=== PATIENT | female | born 1990 | race Caucasian/White ===

== ENCOUNTER 2019-02-01 06:15 | Inpatient (IN) | payer BC ==
[2019-02-02] MEDS ORDERED: LIDOCAINE 0.5% (PF) 5 MG/ML (50 ML SDV) SQ PRN (06:22)
[2019-02-02] MEDS ORDERED: TERBUTALINE 1 MG/ML VIAL SQ PRN (06:22)
[2019-02-02] MEDS ORDERED: OXYTOCIN 10 UNIT/ML 1 ML VIAL IM PRN (06:22)
[2019-02-02] MEDS ORDERED: CARBOPROST TROMETHAMINE 250 MCG/ML 1 ML AMP IM PRN (06:22)
[2019-02-02] MEDS ORDERED: METHYLERGONOVINE 0.2 MG/ML 1 ML AMP IM PRN (06:22)
[2019-02-02] MEDS ORDERED: OXYTOCIN 30 UNITS/500 ML NS 30 UNIT in SALINE 1 500ML.BAG IV SCH (06:30)
[2019-02-02] MEDS: LACTATED RINGERS 1,000 ML IV SCH ×3 (06:36→15:10)
[2019-02-02 07:38] LABS: Basophils % (A) 0 %; Eosinophils # (A) 0.1 k/uL (0-0.7); Eosinophils % (A) 1 %; HCT 38.1 % (34.0-46.0); HGB 13.2 gm/dL (11.4-16.0); Lymphocytes # (A) 1.4 k/uL (1.0-4.8); Lymphocytes % (A) 16 %; MCH 31.6 pg (25.0-35.0); MCHC 34.6 g/dL (31.0-37.0); MCV 91.3 fL (80.0-100.0); Mean Platelet Volume 6.7; Monocytes # (A) 0.5 k/uL (0-1.0); Monocytes % (A) 6 %; Neutrophils # (A) 6.7 k/uL (1.3-7.7); Neutrophils % (A) 75 %; Platelet Count 236 k/uL (150-450); RBC 4.17 m/uL (3.80-5.40); RDW 12.3 % (11.5-15.5)
[2019-02-02] MEDS ORDERED: BUTORPHANOL 1 MG/ML 1 ML VIAL IV PRN (08:17)
--- NOTE | 2019-02-02 08:34 | P.HPOB ---
History of Present Illness H&P Date: 02/02/19 Chief Complaint: IUP @ 39 This is a pleasant 28-year-old 1 para 0 at 39 4/7 with an estimated due date of 02/09/19. Patient presents for induction of labor with suspected LGA. Patient had an ultrasound done at 37 weeks revealing a 8 lbs. 2 oz. baby in the 90th percentile. Patient has been receiving routine care with myself which has been essentially uncomplicated. Today she notes good movement she denies contractions, vaginal bleeding or loss of fluid. On blood work she has a blood type of a positive, rubella immune, RPR nonreactive, hep Hyacinth surface antigen negative, HIV negative, she did pass her one-hour Glucola on 11/10/18 with a result of 116, group beta strep was negative on 01/13/19. Review of Systems Constitutional: Denies chills, Denies fatigue, Denies fever Ears, nose, mouth and throat: Denies headache Cardiovascular: Reports leg edema Respiratory: Denies dyspnea Gastrointestinal: Denies nausea, Denies vomiting Genitourinary: Reports Past Medical History Past Medical History: No Reported History History of Any Multi-Drug Resistant Organisms: None Reported Past Surgical History: No Surgical Hx Reported Past Anesthesia/Blood Transfusion Reactions: No Reported Reaction Past Psychological History: No Psychological Hx Reported Smoking Status: Never smoker Past Alcohol Use History: None Reported Past Drug Use History: None Reported - Past Family History Father Family Medical History: No Reported History Medications and Allergies Home Medications Medication Instructions Recorded Confirmed Type Pnv No.95/Ferrous Fum/Folic AC 1 each PO DAILY 02/02/19 02/02/19 History [ Multivitamin Tablet] Allergies Allergy/AdvReac Type Severity Reaction Status Date / Time No Known Allergies Allergy Verified 02/02/19 06:21 Exam Osteopathic Statement: *. No significant issues noted on an osteopathic structural exam other than those noted in the History and Physical/Consult. Vital Signs Temp Pulse Resp BP Pulse Ox 02/02/19 06:21 97.8 F 92 18 130/81 98 Intake and Output 02/01/19 02/02/19 02/02/19 22:59 06:59 14:59 Other: Weight 86.183 kg 86.183 kg Targeted physical exam was performed and the state in general this a well- nourished well-developed female in no acute distress, breathing is noted to be nonlabored heart has regular rate and rhythm abdomen is noted to be gravid and large for gestational age, on cervical exam she is 1/50/-2 amniotomy is performed and clear fluid is obtained. heart tones are noted to be category 1 Results Result Diagrams: 02/02/19 07:23 Assessment and Plan (1) Term Current Visit: Yes Status: Acute Code(s): Z34.90 - ENCNTR FOR SUPRVSN OF NORMAL , UNSP, UNSP TRIMESTER SNOMED Code(s): 16623505 (2) LGA (large for gestational age) fetus Current Visit: Yes Status: Acute Code(s): TZP7744 - SNOMED Code(s): 273127641 Plan: Patient is admitted to labor and delivery for Pitocin induction of labor. Pitocin is started per hospital protocol. We'll monitor closely with suspected large for gestational age fetus. Patient does desire epidural during labor and anesthesia will be notified.
[2019-02-02] MEDS ORDERED: fentaNYL (PF) 50 MCG/ML 5 ML AMP ONE (12:17)
[2019-02-02] MEDS ORDERED: SODIUM CHLORIDE 0.9% 100 ML BAG ONE (12:17)
[2019-02-02] MEDS ORDERED: ROPIVACAINE 5MG/ML 20ML VIAL ONE (12:17)
[2019-02-02] MEDS ORDERED: ROPIVACAINE 100 MG, fentaNYL (PF) 200 MCG in SODIUM CHLORIDE 0.9% 76 ML EPIDURAL ONE (14:32)
[2019-02-02] MEDS ORDERED: CITRIC ACID-SODIUM CITRATE 15 ML CUP PO ONE (17:11)
[2019-02-02] MEDS ORDERED: MORPHINE SULFATE (PF) 0.3 MG/0.3 ML SYR ONE (17:37)
[2019-02-02] MEDS ORDERED: ONDANSETRON 4 MG/2 ML VIAL ONE (17:37)
[2019-02-02] MEDS ORDERED: OXYTOCIN 10 UNIT/ML 1 ML VIAL ONE (17:37)
[2019-02-02] MEDS ORDERED: ONDANSETRON 4 MG/2 ML VIAL IVP PRN (18:22)
[2019-02-02] MEDS ORDERED: diphenhydrAMINE 50 MG/ML 1 ML VIAL IVP PRN ×2 (18:22)
[2019-02-02] MEDS ORDERED: METOCLOPRAMIDE 5 MG/ML 2 ML VIAL IVP PRN (18:22)
[2019-02-02] MEDS ORDERED: diphenhydrAMINE 50 MG CAP PO PRN (18:22)
[2019-02-02] MEDS ORDERED: NALOXONE 0.4 MG/ML 1 ML VIAL IV PRN (18:22)
[2019-02-02] MEDS ORDERED: ZOLPIDEM 5 MG TAB PO PRN (18:22)
[2019-02-02] MEDS ORDERED: diphenhydrAMINE 25 MG CAP PO PRN (18:22)
[2019-02-02] MEDS ORDERED: ACETAMINOPHEN IV (For NPO) 1,000 MG in EMPTY BAG 1 BAG IVPB ONE (18:22)
[2019-02-02] MEDS ORDERED: IBUPROFEN IV 800 MG in SODIUM CHLORIDE 0.9% 250 ML IV ONE (18:23)
--- NOTE | 2019-02-02 18:28 | P.OP ---
Date of Procedure: 02/02/19 Preoperative Diagnosis: IUP at 39 and 4/sevenths weeks, arrest of first stage of labor Postoperative Diagnosis: Same Procedure(s) Performed: Primary low transverse section Anesthesia: epidural Surgeon: Gina Simental [employer]asting #1: Ana Kerr Estimated Blood Loss (ml): 600 IV fluids (ml): 600 Urine output (ml): 300 Pathology: none sent Condition: stable Disposition: PACU Indications for Procedure: This pleasant 28-year-old 1 para 0 at 39-4/7 weeks presented to delivery for induction of labor. Patient was admitted and noted to be 1/50/-3. Over the course of the day patient made very minimal change 3/100/-2 station. Patient was given the options of progressing forward versus primary for arrest of labor patient elected primary given her very minimal change t hroughout the day. Operative Findings: Normal uterus tubes and ovaries were appreciated. Female delivered at 1749, weight of 8 lbs. 2 oz. with Apgars of 8 and 9 at one and 5 minutes respectively. Description of Procedure: Patient was taken back to the operating suite where epidural anesthesia was found be adequate. She was prepped and draped in the normal sterile fashion in the dorsal supine position. A Pfannenstiel skin incision was made with the scalpel and carried through the underlying layer of fascia. Fascia was then incised in the midline and the incision was extended laterally. The superior aspect of the fascial incision was then grasped annika clamps, elevated and underlying rectus muscles dissected off sharply. Attention was then turned to the inferior aspect of the fascial incision which was grasped with Annika clamps, elevated and underlying rectus muscles dissected off sharply. The rectus muscles were in the midline the peritoneum was identified and entered. The incision was then extended superiorly and inferiorly with good visualization the bladder. The bladder blade was then inserted into the abdomen. The vesicouterine peritoneum was identified and the bladder flap was then created. A scalpel was then used to create a hysterotomy incision the was encountered in a vertex presentation occiput transverse and delivered through the umbilical cord was doubly clamped and cut and was handed off to awaiting RN. The placenta was then delivered manually and noted to be intact with a three-vessel cord. The uterus was cleared of all clots and debris and delivered from the abdomen. The uterine incision was closed 0 Vicryl in a running locked fashion 2. Hemostasis was appreciated. At this time the pelvis was then copiously irrigated and the uterus was returned to the abdomen. The gutters were cleared of all clots and debris. The hysterotomy incision was inspected and hemostasis was appreciated. The rectus muscles were loosely reapproximated and the fascial incision was closed with 0 Vicryl in a running fashion. The subcutaneous tissue was irrigated and found to be hemostatic. This was closed with 3-0 Vicryl. The skin was then closed with 4-0 Vicryl in a subcuticular fashion, Steri-Strips and sterile dressings were applied as needed. All counts were correct 2 patient and tolerated delivery well and are resting comfortably.
[2019-02-02] MEDS ORDERED: LACTATED RINGERS 1,000 ML IV SCH (18:30)
[2019-02-02] MEDS ORDERED: OXYTOCIN 20 UNITS/1000 ML NS 1,000 ML IV SCH (18:30)
[2019-02-02] MEDS: SENNOSIDES-DOCUSATE SODIUM 1 EACH TAB PO SCH (20:20)
[2019-02-02] MEDS ORDERED: LACTATED RINGERS 500 ML IV SCH (23:45)
[2019-02-03] MEDS: LACTATED RINGERS 500 ML IV SCH ×4 (00:05→04:18)
[2019-02-03 00:23] LABS: HCT 31.4 % (34.0-46.0); HGB 10.4 gm/dL (11.4-16.0); MCH 30.8 pg (25.0-35.0); MCHC 33.1 g/dL (31.0-37.0); MCV 93.1 fL (80.0-100.0); Mean Platelet Volume 6.8; Platelet Count 241 k/uL (150-450); RBC 3.37 m/uL (3.80-5.40); RDW 12.3 % (11.5-15.5)
[2019-02-03] MEDS ORDERED: KETOROLAC 30 MG/ML 1 ML VIAL IVP PRN (03:08)
[2019-02-03] MEDS: HYDROcodone/APAP 5-325MG 1 EACH TAB PO PRN ×2 (04:33→13:46)
[2019-02-03] MEDS ORDERED: ACETAMINOPHEN IV (For NPO) 1,000 MG in EMPTY BAG 1 BAG IVPB ONE (05:15)
[2019-02-03 07:42] LABS: Basophils % (A) 0 %; Eosinophils % (A) 0 %; HGB 9.6 gm/dL (11.4-16.0); Lymphocytes % (A) 5 %; MCH 31.8 pg (25.0-35.0); MCHC 34.3 g/dL (31.0-37.0); MCV 92.7 fL (80.0-100.0); Mean Platelet Volume 6.1; Monocytes # (A) 0.6 k/uL (0-1.0); Monocytes % (A) 3 %; Neutrophils # (A) 17.7 k/uL (1.3-7.7); Neutrophils % (A) 91 %; Platelet Count 250 k/uL (150-450); RBC 3.02 m/uL (3.80-5.40); RDW 12.5 % (11.5-15.5); WBC 19.4 k/uL (3.8-10.6)
--- NOTE | 2019-02-03 08:15 | P.PNOBGPC ---
Subjective - Subjective Principal diagnosis: POD 1 LTCS Interval history: Patient is seen this morning and feeling well. She states she did have a roughly evening. She states her blood pressure was low she felt unwell did end up getting a fluid bolus and her blood pressure returned to normal. A stat CBC was drawn and hemoglobin was noted to be normal. She did struggle with pain in addition over the night. She was given an additional dose of Ofirmev, caldolor and started oral Chiloquin. This morning she states she is feeling much better. She is wearing an abdominal binder and states that helps. She had her Beauchamp removed at 5 AM and we are awaiting a spontaneous void. She states this morning her pain is controlled. She notes lochia to be minimal. She is breast-feeding with some difficulty. Patient reports: Reports appetite normal, Reports pain well controlled [facility]: doing well, nursing well Objective - Vital Signs Latest vital signs: Vital Signs Temp Pulse Resp BP Pulse Ox 02/03/19 03:00 97.9 F 92 14 92/57 100 02/03/19 00:00 98.8 F 78 16 90/58 98 02/02/19 20:17 96.9 F L 86 16 118/56 99 02/02/19 19:47 99.1 F 79 18 112/67 97 02/02/19 19:23 98 18 115/56 02/02/19 19:08 89 18 104/55 97 02/02/19 18:54 88 18 131/60 97 02/02/19 18:36 88 18 166/72 96 02/02/19 18:17 97.8 F 101 H 18 Intake and Output 02/02/19 02/03/19 02/03/19 22:59 06:59 14:59 Intake Total 1900 1550 Output Total 800 800 Balance 1100 750 Intake: Intake, IV Titration 1900 1550 Amount ACETAMINOPHEN IV (For NPO 400 ) 1,000 mg In Empty Bag 1 bag @ 400 mls/hr IVPB ONCE ONE Rx#:[id number] Ibuprofen IV 800 mg In 500 Sodium Chloride 0.9% 250 ml @ 500 mls/hr IV ONCE ONE Rx#:[id number] Lactated Ringers 500 ml @ 500 999 mls/hr IV .Q31M TON Rx#:[id number] Oxytocin 20 Units/1000 ml 1000 1000 Ns 1,000 ml @ Per Protocol IV .Q0M TON Rx#: [id number] ceFAZolin 2 gm In Sodium 50 Chloride 0.9% 50 ml @ 100 mls/hr IVPB ONCE ONE Rx# :[id number] Output: Urine 800 800 Uretheral (Beauchamp) 600 Other: Voiding Method Indwelling Catheter Indwelling Catheter - Exam Abdomen: Present: normal appearance Incision: Present: normal, dry, intact Uterus: Present: normal, firm - Labs Labs: Abnormal Lab Results - Last 24 Hours (Table) 02/03/19 02/03/19 Range/Units 00:06 06:57 WBC 21.0 H 19.4 H (3.8-10.6) k/uL RBC 3.37 L 3.02 L (3.80-5.40) m/uL Hgb 10.4 L 9.6 L (11.4-16.0) gm/dL Hct 31.4 L 28.0 L (34.0-46.0) % Neutrophils # 17.7 H (1.3-7.7) k/uL Assessment and Plan (1) Term Current Visit: Yes Status: Acute Code(s): Z34.90 - ENCNTR FOR SUPRVSN OF NORMAL , UNSP, UNSP TRIMESTER SNOMED Code(s): 93799235 (2) LGA (large for gestational age) fetus Current Visit: Yes Status: Acute Code(s): DDE8855 - SNOMED Code(s): 437629363 (3) S/P section Current Visit: Yes Status: Acute Code(s): Z98.891 - HISTORY OF UTERINE SCAR FROM PREVIOUS SURGERY SNOMED Code(s): 824464382 Plan: We will encourage ambulation this morning, advance diet to regular. Will plan to encourage by mouth pain medications scheduled.
[2019-02-03] MEDS: IBUPROFEN 600 MG TAB PO PRN ×3 (09:58→22:41)
[2019-02-03] MEDS: SENNOSIDES-DOCUSATE SODIUM 1 EACH TAB PO SCH ×2 (11:32→19:40)
[2019-02-03 12:29] VITALS: RESP 16
[2019-02-03] MEDS: ACETAMINOPHEN TAB 325 MG TAB PO PRN (19:40)
[2019-02-03] MEDS: PRENATAL VIT-IRON-FOLIC ACID 1 EACH CAP PO SCH (20:28)
[2019-02-03] MEDS: SIMETHICONE 80 MG CHEWABLE PO PRN (23:08)
[2019-02-04] MEDS: ACETAMINOPHEN TAB 325 MG TAB PO PRN (01:54)
[2019-02-04] MEDS: IBUPROFEN 600 MG TAB PO PRN ×2 (05:21→11:34)
[2019-02-04] MEDS: SIMETHICONE 80 MG CHEWABLE PO PRN ×2 (05:22→08:27)
--- NOTE | 2019-02-04 08:15 | P.PNOBGPC ---
Subjective - Subjective Principal diagnosis: POD 2 LTCS Interval history: Patient continues to struggle with pain control. She is refusing Scio as she states they don't help, so has been using Motrin and Tylenol [id number]. She states she did rest well over the night after being given Benadryl. Patient states she is struggling with breast-feeding and requesting a medical sales consultant consult. Her lochia is minimal. She is tolerating a regular diet without nausea or vomiting. She is ambulating and voiding without difficulty. Infant is doing well and is at the bedside. Patient reports: Reports appetite normal, Reports voiding normally, Reports appetite poor, Reports pain poorly controlled, Reports ambulating normally [place]: doing well Objective - Vital Signs Latest vital signs: Vital Signs Temp Pulse Resp BP 02/04/19 00:00 98.0 F 103 H 16 114/74 02/03/19 16:00 97.9 F 84 16 112/62 02/03/19 12:00 98.5 F 105 H 16 110/58 Intake and Output 02/03/19 02/04/19 02/04/19 22:59 06:59 14:59 Other: # Voids 2 - Exam Extremities: Present: normal, edema Abdomen: Present: normal appearance, soft Incision: Present: normal, dry Uterus: Present: normal, firm Assessment and Plan (1) Term Current Visit: Yes Status: Acute Code(s): Z34.90 - ENCNTR FOR SUPRVSN OF NORMAL , UNSP, UNSP TRIMESTER SNOMED Code(s): 14494380 (2) LGA (large for gestational age) fetus Current Visit: Yes Status: Acute Code(s): IBR4220 - SNOMED Code(s): 381247338 (3) S/P section Current Visit: Yes Status: Acute Code(s): Z98.891 - HISTORY OF UTERINE SCAR FROM PREVIOUS SURGERY SNOMED Code(s): 787212268 Plan: Ultram is ordered for pain control this morning, consult is initiated, discussed with patient that most likely she is feeling gas pain and encouraged ambulation, arabella gibson Will re-evaluate later this afternoon for possibility of discharge. Patient is anxious about discharge today so we'll most likely stay until tomorrow.
[2019-02-04] MEDS: traMADol 50 MG TAB PO SCH ×2 (08:27→14:34)
[2019-02-04] MEDS: PRENATAL VIT-IRON-FOLIC ACID 1 EACH CAP PO SCH (08:27)
[2019-02-04] MEDS: SENNOSIDES-DOCUSATE SODIUM 1 EACH TAB PO SCH (08:27)
[2019-02-04 09:08] VITALS: BP 106/65; PULSE 91; TEMP 98.4
--- NOTE | 2019-02-04 14:32 | P.DS ---
Providers Date of admission: 02/02/19 06:07 Expected date of discharge: 02/04/19 Attending physician: Gina Simental Primary care physician: Stated None - Discharge Diagnosis(es) (1) Term Current Visit: Yes Status: Acute (2) LGA (large for gestational age) fetus Current Visit: Yes Status: Acute (3) S/P section Current Visit: Yes Status: Acute Hospital Course: This pleasant 28-year-old 1 para 0 at 39-4/7 weeks presented to labor and delivery for induction of labor for suspected LGA, patient request. Patient was admitted to labor and delivery despite regular contractions made very minim al cervical change from 1 cm to 3 cm over the course of the entire day. Patient was given the option of continuing on versus primary give her arrest of labor she elected primary . Patient was taken back to the operating suite was performed without difficulty for further details on the C- section please see the operative report. Female infant was delivered at 1749, weight of 8 lbs. 2 oz. with Apgars of 8 and 9 at one and 5 minutes respectively. Patient's postoperative course was compensated by poor pain control. On this postop day #2 she is feeling well though and states her pain is well-controlled and she does wish discharge home. She is breast-feeding without difficulty after a consult, she states her lochia is minimal, she is ambulating and voiding without difficulty. She is tolerating a regular diet without nausea or vomiting. Patient Condition at Discharge: Good Plan - Discharge Summary New Discharge Prescriptions: No Action Pnv No.95/Ferrous Fum/Folic AC [ Multivitamin Tablet] 1 each PO DAILY Discharge Medication List Pnv No.95/Ferrous Fum/Folic AC [ Multivitamin Tablet] 1 each PO DAILY 02/02/19 [History] Follow up Appointment(s)/Referral(s): Gina Simental DO [Doctor of Osteopathic Medicine] - 2 Weeks Patient Instructions/Handouts: (DC), (GEN) Activity/Diet/Wound Care/Special Instructions: No tub baths or intercourse until 6 weeks . Patient is to see me in the office at 2 weeks . Discharge Disposition: HOME SELF-CARE
== END 2019-02-04 15:30 | disposition home or self-care (01) | DRG 788 ==
LOC: 4FBP 02-02 06:07
PROVIDERS: ADMIT Obstetrics & Gynecology Obstetrics; ATTEND Obstetrics & Gynecology Obstetrics
PROC: 10D00Z1 Extraction of Products of Conception, Low, Open Approach (ICD-10-PCS; principal; 2019-02-02 17:30)
DX: O36.63X0 Maternal care for excessive fetal growth, third trimester, not applicable or unspecified (principal); O62.1 Secondary uterine inertia; Z3A.39 39 weeks gestation of pregnancy; Z37.0 Single live birth; G89.18 Other acute postprocedural pain
CPT/HCPCS: 85025; 85027; 86850; 86900; 86901

== ENCOUNTER 2019-02-17 10:40 | Inpatient (IN) | payer BC ==
[2019-02-17 11:26] LABS: Basophils # (A) 0.1 k/uL (0-0.2); Basophils % (A) 0 %; Eosinophils # (A) 0.2 k/uL (0-0.7); Eosinophils % (A) 2 %; HCT 28.3 % (34.0-46.0); HGB 9.3 gm/dL (11.4-16.0); Hypochromasia Moderate; Lymphocytes % (A) 7 %; MCH 30.7 pg (25.0-35.0); MCV 92.9 fL (80.0-100.0); Mean Platelet Volume 7.5; Monocytes # (A) 0.6 k/uL (0-1.0); Monocytes % (A) 4 %; Neutrophils # (A) 13.5 k/uL (1.3-7.7); Neutrophils % (A) 87 %; Platelet Count 494 k/uL (150-450); Poikilocytosis Slight; RBC 3.05 m/uL (3.80-5.40); RDW 12.8 % (11.5-15.5); WBC 15.6 k/uL (3.8-10.6)
[2019-02-17 11:40] LABS: ALT 16 U/L (4-34); AST 32 U/L (14-36); African American GFR (CKD) >90 (>60 ml/min/1.73 sqM); Alkaline Phosphatase 117 U/L (38-126); Anion Gap 11 mmol/L; Blood Urea Nitrogen 11 mg/dL (7-17); Carbon Dioxide 23 mmol/L (22-30); Chloride 104 mmol/L (98-107); Glucose 92 mg/dL (74-99); Non-African American GFR(CKD) >90 (>60 ml/min/1.73 sqM); Potassium 3.4 mmol/L (3.5-5.1); Sodium 138 mmol/L (137-145); Total Bilirubin 0.8 mg/dL (0.2-1.3); Total Protein 5.8 g/dL (6.3-8.2)
[2019-02-17] MEDS: PIPERACILLIN-TAZOBACTAM 3.375 GM in SODIUM CHLORIDE 0.9% 100 ML IVPB SCH ×2 (11:56→19:51)
[2019-02-17] MEDS: LACTATED RINGERS 1,000 ML IV SCH ×2 (12:06→22:08)
[2019-02-17] MEDS ORDERED: Acetaminophen-Codeine 300-30mg TAB PO PRN (12:11)
[2019-02-17] MEDS ORDERED: SENNOSIDES-DOCUSATE SODIUM 1 EACH TAB PO STA (12:13)
[2019-02-17] MEDS ORDERED: BISACODYL 10 MG SUPP RECTAL STA (12:14)
[2019-02-17] MEDS: IBUPROFEN 600 MG TAB PO SCH ×3 (12:20→22:07)
--- NOTE | 2019-02-17 12:26 | P.HPOB ---
History of Present Illness H&P Date: 02/17/19 Chief Complaint: postop wound infection, seroma this pleasant 28-year-old 1 para 1 underwent primary low transverse section proximally 2 weeks ago. Patient noted increasing swelling and discoloration around the wound itself and presented to the office on Thursday. She denied fevers at that time. She noted an increase in discomfort and was taking Motrin and Tylenol [id number] for pain. Patient denied fevers at that time. She notes normal urination and some constipation. Patient subsequently presented to the office with increasing complaints of discharge, bloody in nature from the incision. Patient was seen in the office afebrile, normal vitals, minimal discharge from the incision. Patient states after the drainage And she did feel relief of pressure and discomfort. Patient denies nausea vomiting or diarrhea. She denies fever at home. She does note constipation since taking Tylenol 3. She was breast-feeding previously but discontinued. Review of Systems Constitutional: Reports fatigue, Denies chills, Denies fever Ears, nose, mouth and throat: Denies headache Cardiovascular: Reports leg edema Respiratory: Denies dyspnea Gastrointestinal: Reports constipation, Denies diarrhea, Denies nausea, Denies vomiting Past Medical History Past Medical History: No Reported History History of Any Multi-Drug Resistant Organisms: None Reported Past Surgical History: No Surgical Hx Reported, Section Past Anesthesia/Blood Transfusion Reactions: No Reported Reaction Past Psychological History: No Psychological Hx Reported Smoking Status: Never smoker Past Alcohol Use History: None Reported Past Drug Use History: None Reported - Past Family History Father Family Medical History: No Reported History Medications and Allergies Home Medications Medication Instructions Recorded Confirmed Type Pnv No.95/Ferrous Fum/Folic AC 1 each PO DAILY 02/02/19 02/17/19 History [ Multivitamin Tablet] Acetaminophen-Codeine 300-30mg 1 - 2 tab PO Q4-6H PRN 02/17/19 02/17/19 History [Tylenol w/codeine #3] Amoxicillin/Potassium Clav 600 BID 02/17/19 History [Augmentin 200-28.5 Chew Tab] Allergies Allergy/AdvReac Type Severity Reaction Status Date / Time No Known Allergies Allergy Verified 02/17/19 10:48 Exam Osteopathic Statement: *. No significant issues noted on an osteopathic structural exam other than those noted in the History and Physical/Consult. Vital Signs Temp Pulse Resp BP 02/17/19 11:26 98.3 F 77 16 106/64 02/17/19 10:58 93 20 116/60 02/17/19 10:43 98.4 F 98 16 106/64 Intake and Output 02/16/19 02/17/19 02/17/19 22:59 06:59 14:59 Other: Weight 76.657 kg targeted physical exam is performed in this date in general this a well- nourished well-developed female, breathing is noted to be nonlabored and she appears well. Heart has a regular rate and rhythm. Abdomen is examined and overall soft with bowel sounds incision is noted to be firm with some discharge serosanguineous in nature. Some tenderness is noted on examination. Results Result Diagrams: 02/17/19 11:16 02/17/19 11:16 Abnormal Lab Results - Last 24 Hours (Table) 02/17/19 02/17/19 Range/Units 11:16 11:16 WBC 15.6 H (3.8-10.6) k/uL RBC 3.05 L (3.80-5.40) m/uL Hgb 9.3 L (11.4-16.0) gm/dL Hct 28.3 L (34.0-46.0) % Plt Count 494 H (150-450) k/uL Neutrophils # 13.5 H (1.3-7.7) k/uL Potassium 3.4 L (3.5-5.1) mmol/L Total Protein 5.8 L (6.3-8.2) g/dL Albumin 3.0 L (3.5-5.0) g/dL Assessment and Plan (1) Wound abscess Current Visit: Yes Status: Acute Code(s): POB0287 - SNOMED Code(s): 288989541 (2) S/P section Current Visit: No Status: Acute Code(s): Z98.891 - HISTORY OF UTERINE SCAR FROM PREVIOUS SURGERY SNOMED Code(s): 463334761 Plan: given increased size of seroma with discharge plan admission for IV antibiotics 24 hours. CBC, CMP, CAT scan are ordered to assess seroma size. We will continue oral pain medications as needed. IV zosyn is ordered given the large nature of the seroma. plan is discussed with the patient in detail, and all questions are answered.
--- NOTE | 2019-02-17 12:57 | CT ---
EXAMINATION TYPE: CT abdomen pelvis wo con DATE OF EXAM: 02/17/2019 COMPARISON: None HISTORY: Post incision infection CT DLP: 958 mGycm Automated exposure control for dose reduction was used. TECHNIQUE: Helical acquisition of images was performed from the lung bases through the pelvis. FINDINGS: There is an elongated fluid collection within the rectus abdominis, infraumbilical within the pelvis at the section incision site. This measures up to 11.0 cm in transverse dimension, 2.3 cm in anterior posterior dimension and 7.3 cm in craniocaudal dimension. There is overlying skin thickenin g and subcutaneous fat stranding. There is also fat stranding in the peritoneum anterior to the uteru s and some free fluid in the right adnexa. Difficult to exclude right adnexal abscess without contras t. In the posterior cul-de-sac there is high density fluid seen. No discrete pneumoperitoneum seen. The unenhanced liver, spleen, pancreas, adrenal glands, and kidneys are unremarkable. Gallbladder dem onstrates no evidence of cholelithiasis and kidneys demonstrate no evidence of nephrolithiasis. [place] us structures appear intact. IMPRESSION: 1. INFERIOR RECTUS SHEATH FLUID COLLECTION MEASURING 11.0 X 2.3 X 7.3 CM. NO CONTRAST IS SEEN TO ASSE SS FOR RIM ENHANCEMENT. THIS COULD REPRESENT HEMATOMA OR ABSCESS. FAT STRANDING AND SKIN THICKENING O VERLYING THIS IS PRESUMED TO REPRESENT CELLULITIS. 2. SMALL VOLUME HIGH DENSITY FREE FLUID IN THE POSTERIOR CUL-DE-SAC MAY BE RELATED TO POSTOPERATIVE C HANGE AND POSTOPERATIVE BLOOD PRODUCTS. ADDITIONALLY THERE IS RIGHT ADNEXAL FLUID THAT LIKELY IS FREE FLUID HOWEVER AGAIN LACK OF INTRAVENOUS CONTRAST MAKES DELINEATION OF ANY INTRA-ABDOMINAL ABSCESS DI FFICULT. CRESCENTIC FLUID ANTERIOR TO THE UTERUS IS ALSO SEEN WITH ILL-DEFINED BORDERS, ALSO LIKELY F REE FLUID.
[2019-02-17] MEDS: Acetaminophen-Codeine 300-30mg TAB PO PRN (18:31)
--- NOTE | 2019-02-17 21:08 | P.PN ---
Subjective Progress Note Date: 02/17/19 Principal diagnosis: rectus hematoma this pleasant 28-year-old 1 para 1 status post primary for arrest of first stage of labor and suspected LGA presented to the office this morning with complaints of bleeding from her incision. Patient was noted to have a firmness around the incision with some dark blood being expressed. Patient denied fever or chills at home but given the extensive nature of the firmness around the incision and tenderness patient was admitted to the hospital for IV antibiotics and further workup. Computed tomography scan was done this afternoon revealing an 11 cm rectus hematoma patient has noted continued drainage throughout the day and states she has taken Tylenol No. 3 1. Patient is in good spirits and although frustrated with admission understands. Objective - Vital Signs Vital signs: Vital Signs Temp 97.9 F 02/17/19 16:00 Pulse 104 H 02/17/19 16:00 Resp 16 02/17/19 16:00 BP 126/71 02/17/19 16:00 Pulse Ox Intake & Output 02/17/19 02/17/19 02/18/19 06:59 18:59 06:59 Weight 76.657 kg Other: # Voids 1 - Constitutional General appearance: Present: average body habitus, cooperative, no acute distress - Respiratory Respiratory: bilateral: CTA - Gastrointestinal Gastrointestinal Comment(s): incision is noted to be intact there is 1 small area that is noted to be oozing old dark blood, on inspection of the peripads that is overlying the incision old dark blood is noted in addition. Ecchymosis is noted around the entire incision. - Labs CBC & Chem 7: 02/17/19 11:16 02/17/19 11:16 Labs: Abnormal Lab Results - Last 24 Hours (Table) 02/17/19 02/17/19 Range/Units 11:16 11:16 WBC 15.6 H (3.8-10.6) k/uL RBC 3.05 L (3.80-5.40) m/uL Hgb 9.3 L (11.4-16.0) gm/dL Hct 28.3 L (34.0-46.0) % Plt Count 494 H (150-450) k/uL Neutrophils # 13.5 H (1.3-7.7) k/uL Potassium 3.4 L (3.5-5.1) mmol/L Total Protein 5.8 L (6.3-8.2) g/dL Albumin 3.0 L (3.5-5.0) g/dL Assessment and Plan (1) Wound abscess Current Visit: Yes Status: Acute Code(s): NQS9193 - SNOMED Code(s): 022307843 (2) S/P section Current Visit: No Status: Acute Code(s): Z98.891 - HISTORY OF UTERINE SCAR FROM PREVIOUS SURGERY SNOMED Code(s): 309351714 (3) Rectus sheath hematoma Current Visit: Yes Status: Acute Code(s): S30.1XXA - CONTUSION OF ABDOMINAL WALL, INITIAL ENCOUNTER SNOMED Code(s): 956700907 Plan: we'll continue IV antibiotics for an additional 2 doses and anticipate discharge home tomorrow. Findings of the CAT scan were reviewed with the patient in detail and she states understanding. She is anxious to feel better and get home. We will monitor patient's vital signs overnight recheck hemoglobin in the morning and I suspect it will be slightly lower than admission given the IV fluids she has received during this admission. Patient's hemoglobin was stable from discharge of her . Hemoglobin on discharge was noted to be 9.6 and on admission today 9.3. We will reevaluate this patient clinically in the morning
[2019-02-17] MEDS: PRENATAL VIT-IRON-FOLIC ACID 1 EACH CAP PO SCH (22:10)
[2019-02-18] MEDS: Acetaminophen-Codeine 300-30mg TAB PO PRN ×2 (00:28→08:22)
[2019-02-18 03:38] VITALS: TEMP 98.2
[2019-02-18] MEDS: IBUPROFEN 600 MG TAB PO SCH (04:08)
[2019-02-18] MEDS: LACTATED RINGERS 1,000 ML IV SCH ×2 (04:09→11:43)
[2019-02-18] MEDS: PIPERACILLIN-TAZOBACTAM 3.375 GM in SODIUM CHLORIDE 0.9% 100 ML IVPB SCH ×2 (04:13→11:42)
[2019-02-18 06:22] LABS: HCT 24.8 % (34.0-46.0); HGB 8.7 gm/dL (11.4-16.0); Hypochromasia Moderate; MCH 32.4 pg (25.0-35.0); MCHC 35.3 g/dL (31.0-37.0); MCV 91.8 fL (80.0-100.0); Mean Platelet Volume 7.5; Platelet Count 474 k/uL (150-450); Poikilocytosis Slight; RDW 12.9 % (11.5-15.5); WBC 11.6 k/uL (3.8-10.6)
[2019-02-18] MEDS: PRENATAL VIT-IRON-FOLIC ACID 1 EACH CAP PO SCH (08:21)
--- NOTE | 2019-02-18 10:05 | P.PN ---
Subjective Progress Note Date: 02/18/19 Principal diagnosis: rectus hematoma patient did well overnight. She continues to be afebrile, she notes continued 0 single this discharge from her incision she states her pain is controlled with oral Tylenol No. 3 alternating with Motrin. Labs are reviewed with the patient this morning her white count did decrease from 15.6-11.6 by slight decrease in her hemoglobin from 9.3-8.7 this was expected secondary to IV fluid hydration. She states she is ambulating and voiding without difficulty at this time. She is still struggling with constipation symptoms. She denies nausea or vomiting and is tolerating a regular diet without difficulty. Objective - Vital Signs Vital signs: Vital Signs Temp 98.2 F 02/18/19 04:20 Pulse 76 02/18/19 04:20 Resp 18 02/18/19 04:20 BP 98/55 02/18/19 04:20 Pulse Ox 100 02/18/19 04:20 Intake & Output 02/17/19 02/18/19 02/18/19 18:59 06:59 18:59 Weight 76.657 kg Other: # Voids 1 2 - Constitutional General appearance: Present: average body habitus, cooperative, no acute distress - Respiratory Respiratory: bilateral: CTA - Cardiovascular Rhythm: regular - Gastrointestinal Gastrointestinal Comment(s): collection surrounding the incision is softening and improving. Serosanguineous fluid is able to be expressed from the incision through the drainage point of the incision. Some tenderness is noted but significant improvement from yesterday. - Labs CBC & Chem 7: 02/18/19 06:00 02/17/19 11:16 Labs: Abnormal Lab Results - Last 24 Hours (Table) 02/17/19 02/17/19 02/18/19 Range/Units 11:16 11:16 06:00 WBC 15.6 H 11.6 H (3.8-10.6) k/uL RBC 3.05 L 2.70 L (3.80-5.40) m/uL Hgb 9.3 L 8.7 L (11.4-16.0) gm/dL Hct 28.3 L 24.8 L (34.0-46.0) % Plt Count 494 H 474 H (150-450) k/uL Neutrophils # 13.5 H (1.3-7.7) k/uL Potassium 3.4 L (3.5-5.1) mmol/L Total Protein 5.8 L (6.3-8.2) g/dL Albumin 3.0 L (3.5-5.0) g/dL Assessment and Plan (1) Wound abscess Current Visit: Yes Status: Acute Code(s): SKC6377 - SNOMED Code(s): 553192458 (2) S/P section Current Visit: No Status: Acute Code(s): Z98.891 - HISTORY OF UTERINE SCAR FROM PREVIOUS SURGERY SNOMED Code(s): 851188358 (3) Rectus sheath hematoma Current Visit: Yes Status: Acute Code(s): S30.1XXA - CONTUSION OF ABDOMINAL WALL, INITIAL ENCOUNTER SNOMED Code(s): 117365997 Plan: labs and exam discussed with patient in detail all questions were answered. Patient will receive her noon dose of IV Zosyn and plan discharge home following this. Discharge planning is discussed with this patient I would like to see her the week of New 's she will continue on her oral Augmentin twice daily.
[2019-02-18 10:40] VITALS: BP 103/60; PULSE 82; RESP 20
--- NOTE | 2019-02-18 12:39 | P.DS ---
Providers Date of admission: 02/17/19 10:40 Expected date of discharge: 02/18/19 Attending physician: Gina Simental Primary care physician: Stated None - Discharge Diagnosis(es) (1) Wound abscess Current Visit: Yes Status: Acute (2) S/P section Current Visit: No Status: Acute (3) Rectus sheath hematoma Current Visit: Yes Status: Acute Hospital Course: This pleasant 28-year-old 1 para 1 presented to the office on 12/18 with complaints of increasing bloody discharge from her incision. Patient states she noted pressure and then a release when the fluid was draining out. Patient denied fevers or chills at that time. She notes no nausea and vomiting she is tolerating a regular diet, she states she is urinating without difficulty she does complain of constipation symptoms since delivery. Patient was admitted approximately 2 weeks ago for an induction of labor secondary to suspected LGA. Patient made minimal progress and the didn't descend into the pelvis therefore primary was performed for that reason. Patient's was completed without difficulty and her course was complicated by poor pain control. Patient did note good pain control on postop day #2 and was eventually discharged home. Patient states that she did well up until the day of the office visit. She states the incision became firm and then she noted the release of fluid as stated above. Patient Condition at Discharge: Good Plan - Discharge Summary New Discharge Prescriptions: No Action Pnv No.95/Ferrous Fum/Folic AC [ Multivitamin Tablet] 1 each PO DAILY Acetaminophen-Codeine 300-30mg [Tylenol w/codeine #3] 1 - 2 tab PO Q4-6H PRN PRN Reason: Mild Pain Amoxicillin/Potassium Clav [Augmentin 200-28.5 Chew Tab] 600 BID Discharge Medication List Pnv No.95/Ferrous Fum/Folic AC [ Multivitamin Tablet] 1 each PO DAILY 02/02/19 [History] Acetaminophen-Codeine 300-30mg [Tylenol w/codeine #3] 1 - 2 tab PO Q4-6H PRN 02/17/19 [History] Amoxicillin/Potassium Clav [Augmentin 200-28.5 Chew Tab] 600 BID 02/17/19 [History] Follow up Appointment(s)/Referral(s): Gina Simental DO [Doctor of Osteopathic Medicine] - 1 Week (03/01) Patient Instructions/Handouts: Seroma (DC), Seroma (GEN), Wound Infection (ED), Wound Infection (DC) Activity/Diet/Wound Care/Special Instructions: Warm compresses to encourage drainage from the incision itself it is continuing to drain serosanguineous fluid. She is to continue her Augmentin twice daily until complete. She is given prescriptions for Tylenol No. 3, [id number] Motrin for pain control. Discharge Disposition: HOME SELF-CARE
== END 2019-02-18 14:00 | disposition home or self-care (01) | DRG 776 ==
LOC: 4FBP 10:40
PROVIDERS: ADMIT Obstetrics & Gynecology Obstetrics; ATTEND Obstetrics & Gynecology Obstetrics
DX: O86.09 Infection of obstetric surgical wound, other surgical site (principal); O90.2 Hematoma of obstetric wound; K59.00 Constipation, unspecified; Z79.899 Other long term (current) drug therapy
CPT/HCPCS: 74176; 80053; 85025; 85027

== ENCOUNTER 2019-02-21 05:53 | Inpatient (IN) | payer BC ==
[2019-02-21] MEDS ORDERED: KETOROLAC 30 MG/ML 1 ML VIAL IVP STA (06:28)
[2019-02-21] MEDS ORDERED: SODIUM CHLORIDE 0.9% 1,000 ML IV STA ×2 (06:28)
[2019-02-21] MEDS ORDERED: PIPERACILLIN-TAZOBACTAM 3.375 GM in SODIUM CHLORIDE 0.9% 100 ML IVPB STA (06:29)
[2019-02-21] MEDS ORDERED: ACETAMINOPHEN TAB 500 MG TAB PO STA (06:29)
[2019-02-21] MEDS ORDERED: MORPHINE SULFATE 2 MG/ML SYRINGE IVP ONE (06:34)
--- NOTE | 2019-02-21 06:35 | ED ---
Abdominal Pain HPI - General Chief Complaint: Abdominal Pain Stated Complaint: [id number] issues Time Seen by Provider: 02/21/19 06:13 Source: patient, family, RN notes reviewed, old records reviewed Mode of arrival: wheelchair Limitations: no limitations - History of Present Illness Initial Comments: Patient is a 28 year old female, approximately 19 days post . Patient reports that she has been having issues postoperatively with concern for infection in her site. She was admitted on February 17 by her MANAGER [facility] doctor And was discharged with oral Augmentin on the . She reports that she has been having fevers, and has been alternating Motrin and Tylenol. She also reports that she has been treated with Tylenol with codeine for postop pain, this is causing her to be constipated. She's not had a bowel movement in greater than 5 days. Patient states that she has noticed some purulent drainage from the left portion of her incision site. Patient denies any vaginal bleeding or discharge. - Related Data Home Medications Medication Instructions Recorded Confirmed Acetaminophen-Codeine 300-30mg 1 - 2 tab PO Q4-6H PRN 02/17/19 02/21/19 [Tylenol w/codeine #3] Amoxic-Pot Clav 875-125Mg 1 tab PO Q12H 02/21/19 02/21/19 [Augmentin 875-125] Fenugreek 3 tab PO TID 02/21/19 02/21/19 Ibuprofen [Motrin Ib] 600 mg PO Q6H 02/21/19 02/21/19 Pnv,Calcium 72/Iron/Folic Acid 1 tab PO DAILY 02/21/19 02/21/19 [ Plus Tablet] Allergies Allergy/AdvReac Type Severity Reaction Status Date / Time No Known Allergies Allergy Verified 02/21/19 08:03 Review of Systems ROS Statement: Those systems with pertinent positive or pertinent negative responses have been documented in the HPI. ROS Other: All systems not noted in ROS Statement are negative. Past Medical History Past Medical History: No Reported History History of Any Multi-Drug Resistant Organisms: None Reported Past Surgical History: No Surgical Hx Reported, Section Past Anesthesia/Blood Transfusion Reactions: No Reported Reaction Past Psychological History: No Psychological Hx Reported Smoking Status: Never smoker Past Alcohol Use History: None Reported Past Drug Use History: None Reported - Past Family History Father Family Medical History: No Reported History General Exam - General Exam Comments Initial Comments: 28-year-old female. Alert and oriented. Moderate discomfort. Limitations: no limitations General appearance: alert Head exam: Present: atraumatic, normocephalic, normal inspection Eye exam: Present: normal appearance, PERRL, EOMI. Absent: scleral icterus, conjunctival injection, periorbital swelling ENT exam: Present: normal exam, mucous membranes moist Neck exam: Present: normal inspection. Absent: tenderness, meningismus, lymphadenopathy Respiratory exam: Present: normal lung sounds bilaterally. Absent: respiratory distress, wheezes, rales, rhonchi, stridor Cardiovascular Exam: Present: regular rate, normal rhythm, normal heart sounds. Absent: systolic murmur, diastolic murmur, rubs, gallop, clicks GI/Abdominal exam: Present: soft, distended, normal bowel sounds, other (Patient has firm lower abdomen, some purulent drainage noted at the left lateral portion of the incision site. No wound dehiscence. No significant erythema to the skin at this time.). Absent: tenderness, guarding, rebound, rigid Extremities exam: Present: normal inspection, full ROM, normal capillary refill. Absent: tenderness, pedal edema, joint swelling, calf tenderness Back exam: Present: normal inspection Neurological exam: Present: alert, oriented X3, CN II-XII intact Psychiatric exam: Present: normal affect, normal mood Skin exam: Present: warm, dry, intact, normal color. Absent: rash Course Vital Signs 02/21/19 02/21/19 06:02 06:28 Temperature 99.7 F H 101.7 F H Pulse Rate 116 H Respiratory 19 Rate Blood Pressure 115/72 O2 Sat by Pulse 98 Oximetry Medical Decision Making - Medical Decision Making Patient is a 28-year-old female, approximately 20 days post . Patient presents today with complaint fever, increasing abdominal pain. She also states she's not had a bowel movement 5 days. Patient's had a fever 102 upon arrival. She started on IV Zosyn and blood cultures obtained. Lactic acid is normal. Mild leukocytosis is noted at 12,000. Patient CT and pelvis with contrast. There is persistent fluid collection with a lower anterior rectus sheath may reflect Stoermer hematoma infection collections difficult to exclude. Also increasing fluid within the pelvic cul-de-sac and left paracolic gutter. She also has noted ball small bowel wall thickening in distention may reflect ileus reactive thickening. Patient's case was discussed with Dr. Irizarry discussed this long call MANAGER HRIS Dr. Owusu. He agreed to admission. Patient will be started on vancomycin as well with consult to infectious disease doctor. - Lab Data Result diagrams: 02/21/19 07:00 02/21/19 07:00 Lab Results 02/21/19 02/21/19 02/21/19 Range/Units 07:00 07:00 07:00 WBC 12.8 H (3.8-10.6) k/uL RBC 3.34 L (3.80-5.40) m/uL Hgb 9.9 L (11.4-16.0) gm/dL Hct 30.7 L (34.0-46.0) % MCV 91.8 (80.0-100.0) fL MCH 29.5 (25.0-35.0) pg MCHC 32.2 (31.0-37.0) g/dL RDW 13.6 (11.5-15.5) % Plt Count 693 H (150-450) k/uL Neutrophils % 90 % Lymphocytes % 5 % Monocytes % 1 % Eosinophils % 2 % Basophils % 1 % Neutrophils # 11.5 H (1.3-7.7) k/uL Lymphocytes # 0.7 L (1.0-4.8) k/uL Monocytes # 0.2 (0-1.0) k/uL Eosinophils # 0.2 (0-0.7) k/uL Basophils # 0.2 (0-0.2) k/uL Hypochromasia Slight PT 9.8 (9.0-12.0) sec INR 0.9 (<1.2) APTT 28.5 (22.0-30.0) sec Sodium 139 (137-145) mmol/L Potassium 3.7 (3.5-5.1) mmol/L Chloride 104 (98-107) mmol/L Carbon Dioxide 24 (22-30) mmol/L Anion Gap 11 mmol/L BUN 8 (7-17) mg/dL Creatinine 0.63 (0.52-1.04) mg/dL Est GFR (CKD-EPI)AfAm >90 (>60 ml/min/1.73 sqM) Est GFR (CKD-EPI)NonAf >90 (>60 ml/min/1.73 sqM) Glucose 95 (74-99) mg/dL Plasma Lactic Acid Cristian (0.7-2.0) mmol/L Calcium 8.8 (8.4-10.2) mg/dL Total Bilirubin 0.6 (0.2-1.3) mg/dL AST 21 (14-36) U/L ALT 17 (4-34) U/L Alkaline Phosphatase 138 H (38-126) U/L Total Protein 5.8 L (6.3-8.2) g/dL Albumin 3.2 L (3.5-5.0) g/dL Amylase 36 (30-110) U/L Lipase 63 (23-300) U/L 02/21/19 Range/Units 07:00 WBC (3.8-10.6) k/uL RBC (3.80-5.40) m/uL Hgb (11.4-16.0) gm/dL Hct (34.0-46.0) % MCV (80.0-100.0) fL MCH (25.0-35.0) pg MCHC (31.0-37.0) g/dL RDW (11.5-15.5) % Plt Count (150-450) k/uL Neutrophils % % Lymphocytes % % Monocytes % % Eosinophils % % Basophils % % Neutrophils # (1.3-7.7) k/uL Lymphocytes # (1.0-4.8) k/uL Monocytes # (0-1.0) k/uL Eosinophils # (0-0.7) k/uL Basophils # (0-0.2) k/uL Hypochromasia PT (9.0-12.0) sec INR (<1.2) APTT (22.0-30.0) sec Sodium (137-145) mmol/L Potassium (3.5-5.1) mmol/L Chloride (98-107) mmol/L Carbon Dioxide (22-30) mmol/L Anion Gap mmol/L BUN (7-17) mg/dL Creatinine (0.52-1.04) mg/dL Est GFR (CKD-EPI)AfAm (>60 ml/min/1.73 sqM) Est GFR (CKD-EPI)NonAf (>60 ml/min/1.73 sqM) Glucose (74-99) mg/dL Plasma Lactic Acid Cristian 1.0 (0.7-2.0) mmol/L Calcium (8.4-10.2) mg/dL Total Bilirubin (0.2-1.3) mg/dL AST (14-36) U/L ALT (4-34) U/L Alkaline Phosphatase (38-126) U/L Total Protein (6.3-8.2) g/dL Albumin (3.5-5.0) g/dL Amylase (30-110) U/L Lipase (23-300) U/L - Radiology Data Interpreted by me: CT shows persistent fluid collection noted within the lower anterior rectus sheath plantarflex/hematoma. Infection collections difficult to exclude. Mildly thickened collections identified a region of the right adnexa chills or symptoms left adnexa with checking rectus sheath collection may reflect hematomas or postoperative fluid. Increasing fluid within the cul-de-sac and left para call get her. Small bowel wall thickening mild distention may reflect ileus or reactive thickening. Disposition Clinical Impression: Post op infection, Ileus, Wound abscess, S/P section, Failure of outpatient treatment Disposition: ADMITTED IP TO THIS HOSP Condition: Stable Is patient prescribed a controlled substance at d/c from ED?: No Referrals: Nonstaff,Physician [Primary Care Provider] - 1-2 days Time of Disposition: 09:12
[2019-02-21 07:14] LABS: Basophils # (A) 0.2 k/uL (0-0.2); Basophils % (A) 1 %; Eosinophils # (A) 0.2 k/uL (0-0.7); Eosinophils % (A) 2 %; HCT 30.7 % (34.0-46.0); HGB 9.9 gm/dL (11.4-16.0); Hypochromasia Slight; Lymphocytes # (A) 0.7 k/uL (1.0-4.8); Lymphocytes % (A) 5 %; MCH 29.5 pg (25.0-35.0); MCHC 32.2 g/dL (31.0-37.0); MCV 91.8 fL (80.0-100.0); Mean Platelet Volume 7.1; Monocytes # (A) 0.2 k/uL (0-1.0); Monocytes % (A) 1 %; Neutrophils # (A) 11.5 k/uL (1.3-7.7); Neutrophils % (A) 90 %; Platelet Count 693 k/uL (150-450); RBC 3.34 m/uL (3.80-5.40); RDW 13.6 % (11.5-15.5); WBC 12.8 k/uL (3.8-10.6)
[2019-02-21 07:26] LABS: ALT 17 U/L (4-34); AST 21 U/L (14-36); African American GFR (CKD) >90 (>60 ml/min/1.73 sqM); Albumin 3.2 g/dL (3.5-5.0); Alkaline Phosphatase 138 U/L (38-126); Amylase 36 U/L (30-110); Anion Gap 11 mmol/L; Blood Urea Nitrogen 8 mg/dL (7-17); Calcium 8.8 mg/dL (8.4-10.2); Carbon Dioxide 24 mmol/L (22-30); Chloride 104 mmol/L (98-107); Glucose 95 mg/dL (74-99); INR 0.9 (<1.2); Non-African American GFR(CKD) >90 (>60 ml/min/1.73 sqM); Partial Thromboplastin Time 28.5 sec (22.0-30.0); Potassium 3.7 mmol/L (3.5-5.1); Prothrombin Time 9.8 sec (9.0-12.0); Sodium 139 mmol/L (137-145); Total Bilirubin 0.6 mg/dL (0.2-1.3); Total Protein 5.8 g/dL (6.3-8.2)
[2019-02-21] MEDS ORDERED: SODIUM CHLORIDE 0.9% 1,000 ML IV ONE (07:50)
--- NOTE | 2019-02-21 08:40 | CT ---
EXAMINATION TYPE: CT abdomen pelvis w con DATE OF EXAM: 02/21/2019 COMPARISON: 02/17/2019 HISTORY: Abdominal pain; S/P CT DLP: 1017.8 mGycm CONTRAST: CT scan of the abdomen and pelvis is performed without Oral Contrast and with IV Contrast, patient in jected with 100 ml mL of Isovue 300. FINDINGS: LUNG BASES-: No visible nodule. No infiltrate. Mild basilar atelectasis noted. LIVER/GB: No calcified gallstones. No space occupying hepatic lesion. Biliary tree is of normal ca liber. PANCREAS: No inflammation. No distinct mass. SPLEEN: No splenic enlargement. No lesion seen. ADRENALS: No nodule. No thickening. KIDNEYS/BLADDER: No hydronephrosis. No nephrolithiasis. No distinct renal mass. Urinary bladder g rossly unremarkable. BOWEL: Normal appendix. Mild distention of small bowel without small bowel wall thickening may be lakeshia ctive in nature and possibly related to ileus. GENITAL ORGANS: There is moderate and increasing free fluid within the pelvis with the largest colle ction measuring 4.2 x 9.0 cm. There is also a slightly thick-walled collection noted in the region of the right adnexa measuring 3.5 x 2.5 cm which appears to track into the rectus abdominal sheath flui d collection described previously. Rectus sheath abdominal collection persists and currently measures 8.0 x 2.0 cm versus 11.0 cm in greatest transverse dimension by 2.3 cm previously. This could reflec t an infected collection versus seroma. Hematoma not excluded. Small amount of fluid is noted trackin g into the region of the left adnexa as well measuring 2.7 x 1.3 cm. The uterus is enlarged compatibl e with state. Fluid is seen within the endometrium. LYMPH NODES: No greater than 1cm abdominal or pelvic lymph nodes are appreciated. AORTA: No significant abnormality. OSSEOUS STRUCTURES: No significant abnormality is seen. OTHER: Additional free fluid identified within the left paracolic gutter. IMPRESSION: 1. Persistent fluid collection noted within the low anterior rectus sheath may reflect seroma/hematom a. Infected collection is difficult to exclude. 2. Mildly thick-walled collections identified within the region of the right adnexa and to a lesser e xtent the left adnexa seen tracking to the rectus sheath collection may reflect hematomas or postoper ative fluid. Infected collections difficult to exclude. 3. Increasing fluid within the cul-de-sac and left paracolic gutter. 4. Small bowel wall thickening with mild distention may reflect ileus and/or reactive thickening.
[2019-02-21] MEDS ORDERED: MORPHINE SULFATE 4 MG/ML SYRINGE IVP STA (08:44)
[2019-02-21] MEDS ORDERED: VANCOMYCIN IV PER PHARMACY 1 EACH MISC MISCELLANE PRN (08:56)
[2019-02-21] MEDS ORDERED: VANCOMYCIN 1,500 MG in SODIUM CHLORIDE 0.9% 250 ML IVPB STA (09:00)
[2019-02-21] MEDS ORDERED: NALOXONE 0.4 MG/ML 1 ML VIAL IV PRN (09:12)
[2019-02-21] MEDS ORDERED: ACETAMINOPHEN TAB 325 MG TAB PO PRN (09:12)
[2019-02-21] MEDS ORDERED: MORPHINE SULFATE 4 MG/ML SYRINGE IV PRN (09:12)
[2019-02-21] MEDS ORDERED: ONDANSETRON 4 MG/2 ML VIAL IVP PRN (09:12)
[2019-02-21 10:23] LABS: Appearance,Urine Clear (Clear); Bacteria,Urine Rare /hpf; Bilirubin,Urine Negative (Negative); Blood,Urine Moderate (Negative); Color,Urine Light Yellow; Glucose,Urine (UA) Negative (Negative); Ketones,Urine Negative (Negative); Leukocyte Esterase,Urine Trace (Negative); Nitrite,Urine Negative (Negative); PH, Urine 5.5 (5.0-8.0); Protein,Urine Negative (Negative); RBC,Urine 50 /hpf (0-5); Specific Gravity,Urine 1.037 (1.001-1.035); Urobilinogen,Urine <2.0 mg/dL (<2.0); WBC,Urine 15 /hpf (0-5)
[2019-02-21] MEDS: KETOROLAC 30 MG/ML 1 ML VIAL IVP PRN ×2 (10:59→21:55)
--- NOTE | 2019-02-21 12:58 | P.HPOB ---
History of Present Illness H&P Date: 02/21/19 Chief Complaint: significant abdominal pain, possible wound abscess the patient is a 28-year-old 1 para 1 who underwent section approximately 2-1/2 weeks ago in an apparently uncomplicated fashion. She began having increased discomfort last week at which time she was noted to have some drainage from the left aspect of the wound which was serosanguineous and description. She was evaluated in our office by Dr. Booth admission for a short course of IV antibiotics followed by continued oral medications. Her pain has continued to significantly increase. She ultimately presented to the emergency department early this morning at which time she was found with a temperature of 102.3. White count was essentially normal. She has significant abdominal pain. Computed tomography scan demonstrates large fluid collections both above the fascia and intra-abdominally. She does report that she felt she was improving with the oral antibiotics but the pain has continued to be significant. 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 Obstetrical history: 1 para 1001 with 1 section approximate 2-3 weeks ago. Gynecologic history: Unremarkable. Past Medical History Past Medical History: No Reported History Additional Past Medical History / Comment(s): Pt recently admitted to [facility] on 02/18/19 with wound abscess/rectus sheath hematoma. History of Any Multi-Drug Resistant Organisms: None Reported Past Surgical History: Section Additional Past Surgical History / Comment(s): x1 Past Anesthesia/Blood Transfusion Reactions: Unable to Obtain Additional Past Anesthesia/Blood Transfusion Reaction / Comment(s): Pt has never had general anesthesia. Smoking Status: Never smoker - Past Family History Father Family Medical History: No Reported History Additional Family Medical History / Comment(s): Father is healthy Mother Family Medical History: Diabetes Mellitus Medications and Allergies Home Medications Medication Instructions Recorded Confirmed Type Acetaminophen-Codeine 300-30mg 1 - 2 tab PO Q4-6H PRN 02/17/19 02/21/19 History [Tylenol w/codeine #3] Amoxic-Pot Clav 875-125Mg 1 tab PO Q12H 02/21/19 02/21/19 History [Augmentin 875-125] Fenugreek 3 tab PO TID 02/21/19 02/21/19 History Ibuprofen [Motrin Ib] 600 mg PO Q6H 02/21/19 02/21/19 History Pnv,Calcium 72/Iron/Folic Acid 1 tab PO DAILY 02/21/19 02/21/19 History [ Plus Tablet] Allergies Allergy/AdvReac Type Severity Reaction Status Date / Time No Known Allergies Allergy Verified 02/21/19 08:03 Exam Vital Signs Temp Pulse Pulse Resp BP BP Pulse Ox 02/21/19 12:15 98.8 F 86 14 95/61 97 02/21/19 09:08 99.9 F H 95 16 109/69 97 02/21/19 06:28 101.7 F H 02/21/19 06:02 99.7 F H 116 H 19 115/72 98 Intake and Output 02/20/19 02/21/19 02/21/19 22:59 06:59 14:59 Other: Weight 76.657 kg 76.657 kg in general, this is a well-developed, well-nourished white female in no acute distress she does appear uncomfortable. Her heart has regular rhythm and rate without murmur. Her lungs are clear to auscultation bilaterally in all diaz. Her abdomen is nondistended, soft, with moderate generalized tenderness below the umbilicus with some possible discoloration. The incision itself appears clean dry and intact and to be healing well. Her extremities are without any cyanosis, clubbing, or edema and are nontender to palpation bilaterally. Pelvic examination is deferred. Results Result Diagrams: 02/21/19 07:00 02/21/19 07:00 Abnormal Lab Results - Last 24 Hours (Table) 02/21/19 02/21/19 02/21/19 Range/Units 07:00 07:00 10:06 WBC 12.8 H (3.8-10.6) k/uL RBC 3.34 L (3.80-5.40) m/uL Hgb 9.9 L (11.4-16.0) gm/dL Hct 30.7 L (34.0-46.0) % Plt Count 693 H (150-450) k/uL Neutrophils # 11.5 H (1.3-7.7) k/uL Lymphocytes # 0.7 L (1.0-4.8) k/uL Alkaline Phosphatase 138 H (38-126) U/L Total Protein 5.8 L (6.3-8.2) g/dL Albumin 3.2 L (3.5-5.0) g/dL Ur Specific Thompson 1.037 H (1.001-1.035) Urine Blood Moderate H (Negative) Ur Leukocyte Esterase Trace H (Negative) Urine RBC 50 H (0-5) /hpf Urine WBC 15 H (0-5) /hpf Urine Bacteria Rare H (None) /hpf Assessment and Plan (1) S/P section Current Visit: Yes Status: Acute Code(s): Z98.891 - HISTORY OF UTERINE SCAR FROM PREVIOUS SURGERY SNOMED Code(s): 201165490 (2) Rectus sheath hematoma Current Visit: No Status: Acute Code(s): S30.1XXA - CONTUSION OF ABDOMINAL WALL, INITIAL ENCOUNTER SNOMED Code(s): 258807011 (3) Post op infection Current Visit: Yes Status: Acute Code(s): T81.40XA - INFECTION FOLLOWING A PROCEDURE, UNSPECIFIED, INIT SNOMED Code(s): 99568716 Plan: the patient is admitted for further evaluation and treatment. She will continue on IV antibiotics which will be determined by infectious disease who has been consulted. I discussed the case with the oracle distribution consultant and we have agreed that the patient will likely have CT-guided aspiration of the fluid collections both for culture and for identification of the type of fluid collection it represents. She will otherwise have a regular diet and be allowed regular activities. 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 She will likely remain an inpatient until afebrile for 24-48 hours and with at least moderate clinical improvement.
[2019-02-21] MEDS: CEFEPIME 2 GM in SODIUM CHLORIDE 0.9% 100 ML IVPB SCH ×2 (14:07→21:55)
[2019-02-21] MEDS: HYDROmorphone PCA 10 MG/50 ML BAG IV PRN (14:58)
[2019-02-21] MEDS: SENNOSIDES-DOCUSATE SODIUM 1 EACH TAB PO SCH ×2 (15:15→21:19)
[2019-02-21 15:20] VITALS: BMI 27.2
--- NOTE | 2019-02-21 17:37 | P.PCN ---
Date of Procedure: 02/21/19 Preoperative Diagnosis: cellulitis Postoperative Diagnosis: same Procedure(s) Performed: u/s aspiration anterior abdominal wall attempted Anesthesia: none Estimated Blood Loss (ml): 1 Pathology: none sent Condition: stable Operative Findings: hypoechoic area corresponds to low attenuation focus anterior abdominal wall, u/s guided attempted aspiration, no fluid return
--- NOTE | 2019-02-21 17:52 | US ---
Ultrasound-guided abdominal wall aspiration HISTORY: Postop wound infection Ultrasound was used to sterile technique. Correlation to CT scan 02/21/2019 Performed consent the skin overlying a suitable path to the focal focus corresponding to low dense ar ea along the abdominal wall seen on CT prepped and draped. Lidocaine used for local anesthesia. 18-ga uge needle was advanced under direct ultrasound guidance into the area of abnormality. Attempted aspi ration yielded no results. Needle was removed. Hemostasis achieved. Patient remained in stable condit ion. No immediate complication IMPRESSION: Attempted ultrasound-guided aspiration along anterior abdominal wall at the site of patie nt's wound. No aspirate specimen.
[2019-02-21] MEDS: VANCOMYCIN 1,500 MG in SODIUM CHLORIDE 0.9% 250 ML IVPB SCH (18:31)
[2019-02-21] MEDS: SODIUM CHLORIDE 0.9% 1,000 ML IV SCH (21:12)
--- NOTE | 2019-02-21 21:54 | P.CONS ---
History of Present Illness - Reason for Consult Consult date: 02/21/19 post op C section infection Requesting physician: Tracey Prince - Chief Complaint abd pain x few days - History of Present Illness Patient is a 28-year-old female who did have a done on February 02, 2019 patient seemed to have problem with lower abdominal pain since her surgery and did presented to [facility] ER on February 17 when she noticed to have some bloodstained drainage from the left left side of her incision patient was admitted to the hospital for 24-hour she did have a CT of abdominal pelvis completed on the with evidence of inferior rectus sheath fluid collection measuring 11 into 2.32 720 cm patient subsequent discharged home on oral Augmentin however the patient presented back to the ER early this morning with concerns for worsening abdominal pain mostly gaseous distention with intensity almost 7-8/10 and no radiation patient has been nauseated but no vomiting has subsequently had did spike a fever of one 101.7 F patient did have mild tachycardia noted to have elevated white count 12.[address] of abdominal pelvis completed this morning did show pelvic fluid collection which appears retracted rectus abdominis with fluid collection which apparently has slightly decreased in size comparing to CAT scan on February 17 patient did got dose of Zosyn subsequently has been admitted to hospital IV vancomycin infectious disease has been consulted with concern for possible postop infection. Review of Systems CONSTITUTIONAL: Positive for weakness along with the fever. EYES: No complaint. ENT: No complaint. RESPIRATORY: No complaint. CARDIOVASCULAR: No complaint. GENITOURINARY: As per history of present illness. GASTROINTESTINAL: As per history of present illness. MUSCULOSKELETAL: No complaint. INTEGUMENTARY: No complaint. PSYCHOLOGIC: No complaint. ENDOCRINE: No complaint. NEUROLOGIC: No complaint. Past Medical History Past Medical History: No Reported History Additional Past Medical History / Comment(s): Pt recently admitted to [facility] on 02/18/19 with wound abscess/rectus sheath hematoma. History of Any Multi-Drug Resistant Organisms: None Reported Past Surgical History: Section Additional Past Surgical History / Comment(s): x1 Past Anesthesia/Blood Transfusion Reactions: Unable to Obtain Additional Past Anesthesia/Blood Transfusion Reaction / Comm: Pt has never had general anesthesia. Smoking Status: Never smoker - Past Family History Father Family Medical History: No Reported History Additional Family Medical History / Comment(s): Father is healthy Mother Family Medical History: Diabetes Mellitus Medications and Allergies Home Medications Medication Instructions Recorded Confirmed Type Acetaminophen-Codeine 300-30mg 1 - 2 tab PO Q4-6H PRN 02/17/19 02/21/19 History [Tylenol w/codeine #3] Amoxic-Pot Clav 875-125Mg 1 tab PO Q12H 02/21/19 02/21/19 History [Augmentin 875-125] Fenugreek 3 tab PO TID 02/21/19 02/21/19 History Ibuprofen [Motrin Ib] 600 mg PO Q6H 02/21/19 02/21/19 History Pnv,Calcium 72/Iron/Folic Acid 1 tab PO DAILY 02/21/19 02/21/19 History [ Plus Tablet] Allergies Allergy/AdvReac Type Severity Reaction Status Date / Time No Known Allergies Allergy Verified 02/21/19 08:03 Physical Exam Vitals: Vital Signs Temp Pulse Resp BP Pulse Ox 02/21/19 09:08 99.9 F H 95 16 109/69 97 02/21/19 06:28 101.7 F H 02/21/19 06:02 99.7 F H 116 H 19 115/72 98 Intake and Output 02/20/19 02/21/19 02/21/19 22:59 06:59 14:59 Other: Weight 76.657 kg 76.657 kg GENERAL DESCRIPTION: Middle-aged female lying in bed, no distress. No tachypnea or accessory muscle of respiration use. HEENT: Shows Pallor , no scleral icterus. Oral mucous membrane is dry. NECK: Trachea central, no thyromegaly. LUNGS: Unlabored breathing. Decreased breath sounds at bases. No wheeze or crackle. HEART: S1, S2, regular rate and rhythm. ABDOMEN: Soft, mild distention and left lower quadrant tenderness ,no guarding or rigidity EXTREMITIES: No edema of feet. SKIN: No rash, no masses palpable. NEUROLOGICAL: The patient is awake, alert, oriented x3, mood and affect normal. Results CBC & Chem 7: 02/21/19 07:00 02/21/19 07:00 Labs: Abnormal Lab Results - Last 24 Hours (Table) 02/21/19 02/21/19 02/21/19 Range/Units 07:00 07:00 10:06 WBC 12.8 H (3.8-10.6) k/uL RBC 3.34 L (3.80-5.40) m/uL Hgb 9.9 L (11.4-16.0) gm/dL Hct 30.7 L (34.0-46.0) % Plt Count 693 H (150-450) k/uL Neutrophils # 11.5 H (1.3-7.7) k/uL Lymphocytes # 0.7 L (1.0-4.8) k/uL Alkaline Phosphatase 138 H (38-126) U/L Total Protein 5.8 L (6.3-8.2) g/dL Albumin 3.2 L (3.5-5.0) g/dL Ur Specific Rogers 1.037 H (1.001-1.035) Urine Blood Moderate H (Negative) Ur Leukocyte Esterase Trace H (Negative) Urine RBC 50 H (0-5) /hpf Urine WBC 15 H (0-5) /hpf Urine Bacteria Rare H (None) /hpf Assessment and Plan Assessment: 1-patient admitted hospital with abdominal pain nausea and this patient who did have a fever and also mildly elevated white count this patient who is status post on February 02 with a likely postop hematoma and some spontaneous drainage on February 17 now with a repeat CAT scan did show slight decrease in the size of breakfast this collection CT was reviewed with radiologist it was confident that the pelvic collection was more of a hematoma rather than an abscess and possibly seroma around the incision site with abscess not likely but not entirely excluded (1) Post op infection Current Visit: Yes Status: Acute Code(s): T81.40XA - INFECTION FOLLOWING A PROCEDURE, UNSPECIFIED, INIT SNOMED Code(s): 96806400 Plan: 1-we will request a CT-guided aspirate of the abdominal wall fluid which should be sent for both aerobic anaerobic culture and Gram stain 2-vancomycin pharmacy to dose her with a target trough of 15 while watching her kidney function and Vanco trough closely. 3-cefepime 2 g every 12 hours 4-gentle IV fluid 5-check a CRP and procalcitonin level repeat a CBC tomorrow We will follow on clinical condition and cultures to further adjust medication if needed Thank you for this consultation we will follow the patient along with you Time with Patient: Greater than 30
[2019-02-22] MEDS: VANCOMYCIN 1,500 MG in SODIUM CHLORIDE 0.9% 250 ML IVPB SCH ×3 (01:54→17:49)
[2019-02-22] MEDS: KETOROLAC 30 MG/ML 1 ML VIAL IVP PRN (03:29)
[2019-02-22] MEDS: SENNOSIDES-DOCUSATE SODIUM 1 EACH TAB PO SCH ×2 (07:39→20:14)
[2019-02-22] MEDS ORDERED: VANCOMYCIN TROUGH DUE 1 EACH MISC MISCELLANE ONE (09:00)
[2019-02-22] MEDS: IBUPROFEN 400 MG TAB PO PRN ×3 (09:46→20:11)
[2019-02-22] MEDS: CEFEPIME 2 GM in SODIUM CHLORIDE 0.9% 100 ML IVPB SCH ×2 (09:47→21:41)
[2019-02-22 10:12] LABS: African American GFR (CKD) >90 (>60 ml/min/1.73 sqM); Anion Gap 9 mmol/L; Blood Urea Nitrogen 9 mg/dL (7-17); Calcium 8.3 mg/dL (8.4-10.2); Carbon Dioxide 22 mmol/L (22-30); Chloride 107 mmol/L (98-107); Glucose 90 mg/dL (74-99); Non-African American GFR(CKD) >90 (>60 ml/min/1.73 sqM); Potassium 3.9 mmol/L (3.5-5.1); Sodium 138 mmol/L (137-145)
[2019-02-22 10:17] LABS: Basophils # (A) 0.1 k/uL (0-0.2); Basophils % (A) 1 %; Eosinophils # (A) 0.3 k/uL (0-0.7); Eosinophils % (A) 2 %; HCT 27.4 % (34.0-46.0); HGB 8.5 gm/dL (11.4-16.0); Hypochromasia Moderate; Lymphocytes % (A) 8 %; MCH 29.6 pg (25.0-35.0); MCHC 31.2 g/dL (31.0-37.0); Mean Platelet Volume 7.2; Monocytes # (A) 0.3 k/uL (0-1.0); Monocytes % (A) 3 %; Neutrophils # (A) 10.2 k/uL (1.3-7.7); Neutrophils % (A) 85 %; Platelet Count 624 k/uL (150-450); RBC 2.88 m/uL (3.80-5.40); RDW 13.9 % (11.5-15.5)
[2019-02-22] MEDS ORDERED: Acetaminophen-Codeine 300-30mg TAB PO PRN (11:32)
--- NOTE | 2019-02-22 11:43 | P.PN ---
Subjective Progress Note Date: 02/22/19 Principal diagnosis: fever, probable wound hematoma the patient reports that she is tolerating a regular diet as well as fluids. She is concerned that she has not moved her bowels in at least 1 week. There is no further drainage from the incision. She does continue to have a fairly significant amount of pain which, thus far, has only been controlled with IV pain medications. The TEST CENTER MANAGER is keeping her comfortable. She denies any vaginal concerns. She is frustrated over the inability to find a cause for her current symptoms and situation. Objective - Vital Signs Vital signs: Vital Signs Temp 98.7 F 02/22/19 07:45 Pulse 102 H 02/22/19 07:45 Resp 18 02/22/19 07:45 BP 118/55 02/22/19 07:45 Pulse Ox 95 02/22/19 07:45 Intake & Output 02/21/19 02/22/19 02/22/19 18:59 06:59 18:59 Weight 76.657 kg Other: # Voids 1 1 - Exam in general, this is a well-developed, well-nourished white female in no acute distress. Her heart has a regular rhythm and rate without murmur. Her lungs are clear to auscultation bilaterally in all diaz. Her abdomen is nondistended, soft, with mild to moderate tenderness in the bilateral lower quad rants where the abdomen is firm to just below the umbilicus consistent with a possible fluid collection or hematoma underlying. The incision is clean, dry, and intact. Her extremities are without any cyanosis, clubbing, or significant edema and are nontender bilaterally. Breast examination demonstrates significant engorgement primarily in the right upper outer quadrant. There is no erythema present. - Labs CBC & Chem 7: 02/22/19 09:17 02/21/19 07:00 Labs: Abnormal Lab Results - Last 24 Hours (Table) 02/22/19 Range/Units 09:17 WBC 12.0 H (3.8-10.6) k/uL RBC 2.88 L (3.80-5.40) m/uL Hgb 8.5 L (11.4-16.0) gm/dL Hct 27.4 L (34.0-46.0) % Plt Count 624 H (150-450) k/uL Neutrophils # 10.2 H (1.3-7.7) k/uL Microbiology - Last 24 Hours (Table) 02/21/19 06:55 Blood Culture - Preliminary Blood No Growth after 24 hours 02/21/19 10:06 Urine Culture - Preliminary Urine,Voided Assessment and Plan (1) S/P section Current Visit: Yes Status: Acute Code(s): Z98.891 - HISTORY OF UTERINE SCAR FROM PREVIOUS SURGERY SNOMED Code(s): 180897976 (2) Rectus sheath hematoma Current Visit: No Status: Acute Code(s): S30.1XXA - CONTUSION OF ABDOMINAL WALL, INITIAL ENCOUNTER SNOMED Code(s): 396899893 (3) Post op infection Current Visit: Yes Status: Acute Code(s): T81.40XA - INFECTION FOLLOWING A PROCEDURE, UNSPECIFIED, INIT SNOMED Code(s): 30597655 Plan: the patient did spike a temperature again last evening to greater than 102. She is well covered with antibiotics. Interventional radiology was unable to remove any fluid from the collection indicating it most likely is an organized hematoma. All of the fluid collections appear to be smaller on this admission CT compared to that of the last admission. I have discussed this case with infectious disease at length and suspect that the fevers are related to breast engorgement and hematoma as opposed to acute infection. We will continue to use IV antibiotics and will have the patient attempt to nurse her baby and to continue to pump. The largest concern at this time is her degree of pain. I suspect a great deal of this is secondary to the hematoma but that it is al sosignificantly worsened with constipation. As result, I have ordered an enema to be given today to which the patient has agreed. Additionally, I have written orders for resumption of oral pain medications in an attempt to be able to discharge the patient should the enema relieved much of her abdominal pain. We will continue to have close surveillance. I've discussed the case at length with the patient and her family as well as radiology and infectious disease.
[2019-02-22] MEDS: HYDROmorphone PCA 10 MG/50 ML BAG IV PRN (11:46)
[2019-02-22 12:01] LABS: C Reactive Protein 531.9 mg/L (<10.0)
[2019-02-22] MEDS ORDERED: NA PHOS,M-B/NA PHOS,DI-BA 133 ML ENEMA RECTAL STA (12:05)
--- NOTE | 2019-02-22 15:43 | PN ---
PROGRESS NOTE DATE OF SERVICE: 02/22/2019 REASON FOR FOLLOWUP: Fever. HISTORY OF PRESENT ILLNESS: The patient is a 28-year-old female who is status post on February 02, admitted to hospital with a fever and drainage from her abdominal incision. The patient did spike a fever last night of 101 and 102 degrees Fahrenheit, yet the patient has been afebrile since then. She is still complaining of abdominal pain, more of a gaseous pain that she has been complaining of. Some nausea but no vomiting. Did not have any bowel movement. No chest pain, shortness of breath or cough. PHYSICAL EXAMINATION: Blood pressure 116/69 with a pulse of 103, temperature 98.9. She is 95% on room air. General description is a young female lying in bed in no distress. HEENT EXAMINATION: Pallor. No scleral icterus. Oral mucosa membrane is moist. LUNGS: Unlabored breathing. Clear to auscultation anteriorly. HEART: S1, S2. Regular rate and rhythm. ABDOMEN: Soft. Incision currently with no swelling or any redness. EXTREMITIES: No edema of the feet. LABS: Hemoglobin is 8.5, white count 12,000 with a BUN of 9, creatinine 0.62. CRP significantly elevated at 531.9. level is currently pending. DIAGNOSTIC IMPRESSION AND PLAN: Patient admitted to hospital with abdominal pain in this patient who did have fever and elevated white count with abnormal CT suggestive of a rectus sheath hematoma and some pelvic collection which was communicating with the rectus sheath, and actually has slightly decreased in size from recent CT. Features are more of a hematoma. Underlying infection not entirely excluded, especially in view of the significantly elevated CRP level. The patient is currently covered with cefepime and vancomycin; that will be continued while waiting for the culture to finalize and monitoring clinical course closely. MMODL / IJN: [id number] /
[2019-02-22] MEDS: SIMETHICONE 80 MG CHEWABLE PO SCH ×2 (17:00→21:40)
[2019-02-22] MEDS: Acetaminophen-Codeine 300-30mg TAB PO PRN (21:40)
[2019-02-23] MEDS: IBUPROFEN 400 MG TAB PO PRN ×2 (00:16→06:54)
[2019-02-23] MEDS: VANCOMYCIN 1,500 MG in SODIUM CHLORIDE 0.9% 250 ML IVPB SCH ×3 (02:18→18:01)
[2019-02-23] MEDS: SODIUM CHLORIDE 0.9% 1,000 ML IV SCH ×2 (03:14→21:32)
[2019-02-23 07:00] LABS: Basophils % (A) 1 %; Eosinophils # (A) 0.4 k/uL (0-0.7); Eosinophils % (A) 5 %; HGB 7.3 gm/dL (11.4-16.0); Hypochromasia Moderate; Lymphocytes % (A) 12 %; MCH 29.5 pg (25.0-35.0); MCHC 31.7 g/dL (31.0-37.0); MCV 93.1 fL (80.0-100.0); Mean Platelet Volume 7.1; Monocytes # (A) 0.3 k/uL (0-1.0); Monocytes % (A) 3 %; Neutrophils # (A) 6.4 k/uL (1.3-7.7); Neutrophils % (A) 78 %; Platelet Count 503 k/uL (150-450); RBC 2.47 m/uL (3.80-5.40); RDW 13.9 % (11.5-15.5); WBC 8.1 k/uL (3.8-10.6)
[2019-02-23] MEDS: SIMETHICONE 80 MG CHEWABLE PO SCH ×4 (07:03→22:13)
[2019-02-23 07:19] LABS: African American GFR (CKD) >90 (>60 ml/min/1.73 sqM); Anion Gap 5 mmol/L; Blood Urea Nitrogen 6 mg/dL (7-17); Calcium 8.2 mg/dL (8.4-10.2); Carbon Dioxide 25 mmol/L (22-30); Chloride 112 mmol/L (98-107); Glucose 96 mg/dL (74-99); Non-African American GFR(CKD) >90 (>60 ml/min/1.73 sqM); Potassium 3.4 mmol/L (3.5-5.1); Sodium 142 mmol/L (137-145)
[2019-02-23 07:54] LABS: C Reactive Protein 391.8 mg/L (<10.0)
[2019-02-23] MEDS: CEFEPIME 2 GM in SODIUM CHLORIDE 0.9% 100 ML IVPB SCH (09:27)
[2019-02-23] MEDS: Acetaminophen-Codeine 300-30mg TAB PO PRN (09:34)
[2019-02-23] MEDS: SENNOSIDES-DOCUSATE SODIUM 1 EACH TAB PO SCH ×2 (09:35→20:03)
--- NOTE | 2019-02-23 12:44 | P.PN ---
Subjective Progress Note Date: 02/23/19 Principal diagnosis: Hospital day #2, day #21 Pain improved, to attend. Minimal normal-appearing lochia rubra. Mild breast engorgement. No other complaints Objective - Vital Signs Vital signs: Vital Signs Temp 97.9 F 02/23/19 09:56 Pulse 81 02/23/19 09:56 Resp 16 02/23/19 09:56 BP 106/69 02/23/19 09:56 Pulse Ox 95 02/23/19 06:58 Intake & Output 02/22/19 02/23/19 02/23/19 18:59 06:59 18:59 Intake Total 1900 Balance 1900 Intake: Intake, IV Titration 100 Amount Cefepime 2 gm In Sodium 100 Chloride 0.9% 100 ml @ 200 mls/hr IVPB Q12HR TON Rx#:[id number] Oral 1800 Other: # Voids 1 3 # Bowel Movements 2 - Constitutional General appearance: Present: average body habitus, cooperative - EENT Eyes: Present: PERRLA ENT: Present: hearing grossly normal - Neck Neck: Present: normal ROM - Respiratory Respiratory: bilateral: CTA - Cardiovascular Rhythm: regular - Gastrointestinal General gastrointestinal: Present: normal bowel sounds - Genitourinary Genitourinary Comment(s): Fundus firm, midline, 18 week size, minimally tender. - Integumentary Integumentary Comment(s): Incision intact, well approximated. Mild firmness on the right in mid aspect, no rebound or guarding. 3-4 cm segment on the left with increased calor, rubra, no lower. Suggestion of fluid collection beneath with mild fluctuance noted. Integumentary: Present: normal - Neurologic Neurologic: Present: CNII-XII intact, focal deficits - Musculoskeletal Musculoskeletal: Present: strength equal bilaterally - Psychiatric Psychiatric: Present: A&O x's 3, appropriate affect, intact judgment & insight - Labs CBC & Chem 7: 02/23/19 06:32 02/23/19 06:32 Labs: Abnormal Lab Results - Last 24 Hours (Table) 02/22/19 02/23/19 02/23/19 Range/Units 09:17 06:32 06:32 RBC 2.47 L (3.80-5.40) m/uL Hgb 7.3 L (11.4-16.0) gm/dL Hct 23.0 L (34.0-46.0) % Plt Count 503 H (150-450) k/uL Potassium 3.4 L (3.5-5.1) mmol/L Chloride 112 H (98-107) mmol/L BUN 6 L (7-17) mg/dL Calcium 8.2 L (8.4-10.2) mg/dL C-Reactive Protein 391.8 H (<10.0) mg/L Procalcitonin 0.60 H (0.02-0.09) ng/mL Microbiology - Last 24 Hours (Table) 02/21/19 06:55 Blood Culture Gram Stain - Preliminary Blood 02/21/19 06:55 Blood Culture - Final Blood 02/21/19 10:06 Urine Culture - Final Urine,Voided Assessment and Plan Assessment: Hospital day #2, day #21. Wound hematoma, now with positive blood cultures. Plan: Continue IV antibiotics with preliminary positive blood cultures. Consider ope iván left aspect of wound with aerobic and anaerobic cultures. Abdominal binder when ambulating. Good results noted from enema yesterday. Breast pumping as needed for engorgement. Time with Patient: Greater than 30
--- NOTE | 2019-02-23 13:27 | P.PCN ---
Date of Procedure: 02/23/19 Preoperative Diagnosis: Subcutaneous fluid collection left aspect abdominal incision Postoperative Diagnosis: Same, intact fascia Procedure(s) Performed: Incision and drainage, probing of abdominal incision, aerobic and anaerobic wound cultures. Anesthesia: none Surgeon: Ana Kerr Estimated Blood Loss (ml): 2 IV fluids (ml): 0 Urine output (ml): 0 Pathology: other (Aerobic and anaerobic wound cultures) Condition: stable Disposition: observation Description of Procedure: This low transverse incision is 21 days postoperative. Patient has been on IV antibiotics for 48 hours, with positive blood cultures noted. So nographically she has a subincisional hematoma, but on physical exam there is a 5-6 cm area of increased fluctuance, pain, erythema, and calor. It is also warm to the touch. I discussed opening this area to alleviate the pressure, evaluate the integrity of the fascial plane, and perform cultures. Informed consent is reviewed signed witnessed and dated. The area is prepped with Betadine. A sharp sterile scalpel is used in the midportion of this region for approximate 1.5 cm. Immediately a large amount of serosanguineous fluid is drained. It is not malodorous. It does not appear purulent. A aerobic and anaerobic culture swab is used to open loculations. In addition, the fascial layer is probed gently and noted to be intact with no defects. A sterile 4 x 4 dressing is applied with tape. Patient voices immediate relief, pain level from 4-5 now down to 2-3. Procedure is tolerated well. Postoperative instructions reviewed carefully.
[2019-02-23] MEDS ORDERED: ACETAMINOPHEN IV (For NPO) 1,000 MG in EMPTY BAG 1 BAG IVPB ONE (14:00)
--- NOTE | 2019-02-23 14:39 | PN ---
PROGRESS NOTE DATE OF SERVICE: 02/23/2019. REASON FOR FOLLOWUP: Fever, possible infection versus hematoma. INTERVAL HISTORY: The patient overall feels better and has improved and no fever has been recorded in last 24 hours. The patient is feeling better. Today her abdominal pain has improved down to about 4 out of 10. The patient did have multiple bowel movements. No chest pain, shortness of breath or cough and no drainage from the lateral end of the incision. PHYSICAL EXAMINATION: Blood pressure 106/69 with a pulse of 81, temperature 97.9. She is 95% on room air. General description is a middle-aged female lying in bed in no distress. Respiratory system: Unlabored breathing. Clear to auscultation anteriorly. Heart S1, S2. Regular rate and rhythm. ABDOMEN: Soft. The left lateral site of incision did have minimal swelling, slight induration and warmth but no drainage. LABS: Hemoglobin 7.3 with white count 8.1. BUN of 6, creatinine 0.60. CRP is down to 391. DIAGNOSTIC IMPRESSION/PLAN: Patient with fever, leukocytosis. Patient status post with concern for surgical site infection versus hematoma. She did have some erythema noted left lateral end of the wound that will be marked. The patient is currently on vancomycin that will be continued. She did have positive blood culture with gram-positive bacilli that could be more likely contamination. Waiting for the final ID sensitivities. Blood cultures will be repeated and we will discuss with interventional radiology if they can try to aspirate the left lateral end of the incision. Family at the bedside. Their questions and concerns were answered in the meantime. MMODL / IJN: [id number] /
[2019-02-23] MEDS: IBUPROFEN 800 MG TAB PO PRN (18:29)
[2019-02-23] MEDS: ACETAMINOPHEN TAB 500 MG TAB PO PRN (22:06)
[2019-02-24] MEDS: IBUPROFEN 800 MG TAB PO PRN ×3 (01:58→18:02)
[2019-02-24] MEDS: VANCOMYCIN 1,500 MG in SODIUM CHLORIDE 0.9% 250 ML IVPB SCH ×3 (01:59→18:03)
[2019-02-24] MEDS: diphenhydrAMINE 50 MG CAP PO SCH ×2 (03:44→23:54)
[2019-02-24] MEDS: ACETAMINOPHEN TAB 500 MG TAB PO PRN ×3 (05:59→21:59)
[2019-02-24 07:12] LABS: Basophils % (A) 0 %; Eosinophils # (A) 0.3 k/uL (0-0.7); Eosinophils % (A) 4 %; HCT 24.1 % (34.0-46.0); HGB 7.7 gm/dL (11.4-16.0); Hypochromasia Moderate; Lymphocytes % (A) 11 %; MCH 29.3 pg (25.0-35.0); MCHC 31.8 g/dL (31.0-37.0); MCV 92.3 fL (80.0-100.0); Mean Platelet Volume 7.4; Monocytes # (A) 0.2 k/uL (0-1.0); Monocytes % (A) 2 %; Neutrophils # (A) 8.1 k/uL (1.3-7.7); Neutrophils % (A) 82 %; Platelet Count 543 k/uL (150-450); RBC 2.61 m/uL (3.80-5.40); RDW 13.6 % (11.5-15.5); WBC 9.9 k/uL (3.8-10.6)
[2019-02-24 07:27] LABS: African American GFR (CKD) >90 (>60 ml/min/1.73 sqM); Anion Gap 9 mmol/L; Blood Urea Nitrogen 7 mg/dL (7-17); Calcium 8.2 mg/dL (8.4-10.2); Carbon Dioxide 22 mmol/L (22-30); Chloride 112 mmol/L (98-107); Glucose 86 mg/dL (74-99); Non-African American GFR(CKD) >90 (>60 ml/min/1.73 sqM); Potassium 3.8 mmol/L (3.5-5.1); Sodium 143 mmol/L (137-145)
[2019-02-24 09:04] LABS: C Reactive Protein 325.3 mg/L (<10.0)
[2019-02-24] MEDS: SENNOSIDES-DOCUSATE SODIUM 1 EACH TAB PO SCH ×3 (10:30→21:54)
[2019-02-24] MEDS: SIMETHICONE 80 MG CHEWABLE PO SCH ×3 (10:41→23:54)
[2019-02-24] MEDS: IOPAMIDOL CONTRAST (ORAL USE) VIAL PO PRN ×2 (11:39→12:39)
--- NOTE | 2019-02-24 14:28 | CT ---
EXAMINATION TYPE: CT abdomen pelvis w con DATE OF EXAM: 02/24/2019 COMPARISON: 02/21/2019 HISTORY: 28-year-old female 3 weeks after , reassess Pelvic infection TECHNIQUE: Contiguous axial scanning of the abdomen and pelvis following administration of 80 ml Isov ue 300 IV contrast. Delayed images through the kidneys and coronal/sagittal reconstructions performe d. CT DLP: 1019 mGycm Automated exposure control for dose reduction was used. FINDINGS: Heart normal size without pericardial effusion. However, there are new small bilateral pleural effusi ons and patchy bibasilar opacities. Mild perihepatic ascites and mild interloop ascites. Continued moderate to large cul-de-sac fluid akiko suring up to 9.0 x 5.8 cm versus 9.0 x 4.3 cm, previously. The previously described fluid within the superior right adnexa measures 4.0 x 2.8 cm versus 4.3 x 2. 7 cm, previously. This fluid remains contiguous with a fluid extending into the anterior abdominal wall musculature scott ng the expected horizontal incision. Interposed fluid within the abdominal wall musculature measures approximately 7.9 cm wide by 5.4 cm craniocaudal by 1.5 cm thick (coronal image 11 and axial image 73). This is in comparison to approximately 10.1 x 5.7 x 2.1 cm, previously on 02/21/2019, axi al image 73 and coronal image 22). Persistent extensive inflammatory fat stranding within the pelvis. A focal liver lesion or biliary ductal dilatation. Portal venous system appears patent. Gallbladder, adrenal glands, kidneys, spleen, and pancreas appear within normal limits. No dilated small bowel or free air. No significant stool burden. Bladder collapsed. Uterus thickened but slightly less so compared to prior compatible with recent pos tpartum state. Bones: No osseous destructive process. Incidental L2 limbus vertebra. IMPRESSION: 1. FINDINGS SUGGEST PERSISTENT INFECTIOUS PROCESS WITH ABNORMAL FLUID/ABSCESS ALONG THE INCI SUNNI TRACKING INTO THE PELVIC CAVITY AND EXTENDING INTO THE RIGHT ADNEXA. OVERALL SIZE OF THE FLUID A LONG THE ABDOMINAL WALL MUSCULATURE IS SLIGHTLY SMALLER AT 7.9 X 5.4 X 1.5 CM (VERSUS 10.1 X 5.7 BY 2 .1 CM, PREVIOUSLY). RIGHT ADNEXAL ABSCESS ROUGHLY STABLE AT 4.0 X 2.8 CM. 2. LARGE FLUID, POSSIBLY INFECTIVE, DISTENDING THE CUL-DE-SAC IS STABLE TO INCREASED (9.0 X 5.8 CM). 3. NEW SMALL BILATERAL PLEURAL EFFUSIONS AND NOW NEW MILD ABDOMINAL ASCITES. 4. ACCOMPANYING PATCHY BIBASILAR OPACITIES PROBABLY REPRESENT ATELECTASIS. CORRELATE TO EXCLUDE ANY S YMPTOMS OF PNEUMONIA.
--- NOTE | 2019-02-24 17:55 | P.PN ---
Subjective Progress Note Date: 02/24/19 Principal diagnosis: Hospital day #3, status post section 3 weeks ago. Positive flatus, good results from enema. Overall the patient is feeling improved. No further fevers shakes or chills. No vaginal drainage. Pain better controlled. Objective - Vital Signs Vital signs: Vital Signs Temp 98.1 F 02/24/19 10:00 Pulse 65 02/24/19 10:00 Resp 18 02/24/19 10:00 BP 127/73 02/24/19 10:00 Pulse Ox 98 02/24/19 10:00 Intake & Output 02/23/19 02/24/19 02/24/19 18:59 06:59 18:59 Other: # Voids 1 1 - Constitutional General appearance: Present: average body habitus, cooperative - EENT Eyes: Present: PERRLA - Neck Neck: Present: normal ROM - Respiratory Respiratory: bilateral: CTA - Cardiovascular Rhythm: regular - Gastrointestinal General gastrointestinal: Present: normal bowel sounds - Integumentary Integumentary Comment(s): Abdominal incision intact. Less tender, still firm to taut approximate 5-6 cm across. Small incision on the left aspect still draining small amounts of serosanguineous fluid, non-malodorous, not purulent. Integumentary: Present: normal, normal turgor - Neurologic Neurologic: Present: CNII-XII intact - Musculoskeletal Musculoskeletal: Present: gait normal, strength equal bilaterally - Psychiatric Psychiatric: Present: A&O x's 3, appropriate affect, intact judgment & insight - Labs CBC & Chem 7: 02/24/19 06:24 02/24/19 06:24 Labs: Abnormal Lab Results - Last 24 Hours (Table) 02/24/19 02/24/19 Range/Units 06:24 06:24 RBC 2.61 L (3.80-5.40) m/uL Hgb 7.7 L (11.4-16.0) gm/dL Hct 24.1 L (34.0-46.0) % Plt Count 543 H (150-450) k/uL Neutrophils # 8.1 H (1.3-7.7) k/uL Chloride 112 H (98-107) mmol/L Calcium 8.2 L (8.4-10.2) mg/dL C-Reactive Protein 325.3 H (<10.0) mg/L Microbiology - Last 24 Hours (Table) 02/23/19 11:49 Blood Culture - Preliminary Blood No Growth after 24 hours 02/23/19 13:15 Gram Stain - Preliminary Incision Wound Culture - Preliminary Presumptive Staph aureus 02/21/19 06:55 Blood Culture Gram Stain - Final Blood Blood Culture - Final Bacillus species Not Anthracis 02/23/19 13:15 Anaerobic Culture - Preliminary Abdomen Assessment and Plan Assessment: Hospital day #3, gradual improvement noted. Computed tomography scan still suggesting fluid in the cul-de-sac, likely hematoma. Fluid collection around the adnexa, possible small abscess. Fluid collection under her skin incision, improving with decreased size noted. Blood cultures growing staph aureus, sensitivities pending. Plan: After thorough discussion with infectious disease medical cost consultant Dr. Reg simon, our plan is to await culture sensitivities tomorrow morning. Then likely PICC line will be placed, and patient will be sent home on IV antibiotics for [address] imaging in 2 weeks to check progress. Home visiting nurse will also be arranged. I've discussed with the patient signs and symptoms that would warrant change of this plan. Further recommendations to be reviewed tomorrow morning. Time with Patient: Greater than 30
--- NOTE | 2019-02-24 21:38 | PN ---
PROGRESS NOTE DATE OF SERVICE: 02/24/2019 REASON FOR FOLLOWUP: Surgical site infection. INTERVAL HISTORY: The patient is currently afebrile. The patient was seen multiple times 2 days. Today the patient's abdominal pain has improved. The left lateral part of the incision was opened by the OB yesterday and culture has been obtained. No further drainage has been reported. The patient denies having any chest pain, shortness of breath or cough. No nausea, vomiting and no diarrhea. REVIEW OF SYSTEMS: Positive points as mentioned in HPI. The rest of the systems are negative. PHYSICAL EXAMINATION: On examination, her blood pressure is 140/81 with a pulse of 52, temperature 98.6. She is 96% on room air. General description is a middle-aged female lying in bed in no distress. HEENT EXAMINATION: Slight pallor. No scleral icterus. Oral mucosa membrane is moist. LUNGS: Unlabored breathing. Clear to auscultation anteriorly. HEART: S1, S2. Regular rate and rhythm. ABDOMEN: Soft. The incision site minimal swelling but no redness or drainage. LABS/IMAGING: Hemoglobin 7.7, white count 9.9, BUN of 7, creatinine 0.62. CRP is down to 325. The abdominal culture is showing presumptive Staph aureus. Blood cultures with bacillus species. Blood culture repeat has been negative. The patient did have a repeat CT of abdomen and pelvis which showed slight decrease in the amount of fluid collection. DIAGNOSTIC IMPRESSION AND PLAN: Patient admitted to hospital with sepsis in this patient who did have a fever. Elevated white count likely secondary to infected hematoma at the site. CT-guided aspirate by Interventional Radiology was unsuccessful. However, the area has been opened and drained by the OB yesterday with drainage of fluid which does not look purulent; however, the culture is currently showing presumptive Staph aureus with sensitivities pending. CT was reviewed with the radiologist in view of the extensive cellulitis at the surgical site and concern for possible small abscess. The patient will likely fail oral antibiotic therapy. We will get a PICC line for outpatient IV antibiotic, which could be either vancomycin or cefazolin, depending on the sensitivity of this pathogen. This has been discussed in detail with the family as well as with OB. More than 35 minutes have been spent today in taking care of this patient. MMODL / IJN: [id number] /
[2019-02-24] MEDS: SODIUM CHLORIDE 0.9% 1,000 ML IV SCH (23:55)
[2019-02-25] MEDS: SODIUM CHLORIDE 0.9% 1,000 ML IV SCH (02:00)
[2019-02-25] MEDS: IBUPROFEN 800 MG TAB PO PRN ×2 (02:00→10:10)
[2019-02-25] MEDS: VANCOMYCIN 1,500 MG in SODIUM CHLORIDE 0.9% 250 ML IVPB SCH ×2 (02:00→10:12)
[2019-02-25] MEDS: ACETAMINOPHEN TAB 500 MG TAB PO PRN ×2 (06:02→12:22)
[2019-02-25] MEDS ORDERED: VANCOMYCIN TROUGH DUE 1 EACH MISC MISCELLANE ONE (09:00)
[2019-02-25] MEDS ORDERED: ESCITALOPRAM 10 MG TAB PO SCH (09:15)
[2019-02-25 09:45] VITALS: RESP 15
--- NOTE | 2019-02-25 10:41 | P.DS ---
Providers Date of admission: 02/21/19 08:57 Expected date of discharge: 02/25/19 Attending physician: Manny Black Consults: 02/21/19 08:57 Consult Physician Stat Consulting Provider: Jeet Monte Consult Reason/Comments: Post op infection, abx Do you want consulting provider notified?: Yes Primary care physician: Physician Nonstaff Hospital Course: This is a 28-year-old white female status post primary section for arrest of labor 3 weeks ago. Patient was admitted with increasing abdominal pain, and was noted to have fluid collections intra-abdominal lead. In the cul-de-sac fluid measured 9.0 x 5.8 cm, there is a right adnexal area measuring 4.0 x 2.8 cm, and an area along the abdominal wall musculature measuring 7.9 x 5.4 x 1.5 cm. These areas are slightly decreased from previous computed tomography scan performed earlier in the week. Patient was admitted, blood cultures were obtained and antibiotics were started. Infectious disease consultation obtained per Dr. Reg belle who has followed the patient with us carefully. Please see admitting history and physical for details. On hospital day #2 decision was made to make a small incision in the left aspect of the section scar, this produced serosanguineous fluid that was not malodorous nor purulent. The incision immediately was improved clinically and subjectively. Patient's pain was managed with ibuprofen, alternating with Tylenol. Wound cultures today are growing staph aureus, with multiple sensitivities to antibiotics. The decision has been made to proceed with PICC line, and this has been ordered and will likely be performed later today by Dr. Claros of the radiology staff. Patient's hemoglobin and white count have been stable, she has felt greatly improved today. Incision is clean and dry, with the small area on the left aspect still draining a scant amount of fluid. Abdomen is soft, minimally tender, minimally distended. Breasts are not engorged. Extremities are negative for edema. Chest is clear in all diaz. Vital signs upon stable and patient has been afebrile for approximately 72 hours. I have started her on Lexapro 10 mg daily to aid in depression. I've reviewed with her in detail our plan moving forward, it would like to see her in the office in 1 week. Plan is for home antibiotics for 2 weeks, and then repeat computed tomography scan imaging. I have provided the patient with my private cell phone number in case she should have issues upon discharge home. No driving, no intercourse, alternate Motrin and or Tylenol as needed for pain. I've encouraged to continue using the Tri-Flow to keep the lungs open and clear. She will call me with any fevers shakes or chills, foul smelling or copious lochia, with any purulent drainage of the incision, with any pain not alleviated by our regimen above, or indeed with any other concerns. She denies homicidal or suicidal ideation, however is tearful and emotional regarding the entire postoperative situation. She has very good family support and I feel confident and comfortable in allowing the patient to be discharged at this time with close follow-up. Patient Condition at Discharge: Good Plan - Discharge Summary Discharge Rx Participant: No New Discharge Prescriptions: No Action Acetaminophen-Codeine 300-30mg [Tylenol w/codeine #3] 1 - 2 tab PO Q4-6H PRN PRN Reason: Pain Fenugreek 3 tab PO TID Pnv,Calcium 72/Iron/Folic Acid [ Plus Tablet] 1 tab PO DAILY Amoxic-Pot Clav 875-125Mg [Augmentin 875-125] 1 tab PO Q12H Ibuprofen [Motrin Ib] 600 mg PO Q6H Discharge Medication List Acetaminophen-Codeine 300-30mg [Tylenol w/codeine #3] 1 - 2 tab PO Q4-6H PRN 02/17/19 [History] Amoxic-Pot Clav 875-125Mg [Augmentin 875-125] 1 tab PO Q12H 02/21/19 [History] Fenugreek 3 tab PO TID 02/21/19 [History] Ibuprofen [Motrin Ib] 600 mg PO Q6H 02/21/19 [History] Pnv,Calcium 72/Iron/Folic Acid [ Plus Tablet] 1 tab PO DAILY 02/21/19 [History] Follow up Appointment(s)/Referral(s): Nonstaff,Physician [Primary Care Provider] - 1-2 days Ana Kerr MD [STAFF PHYSICIAN] - 1 Week Discharge Disposition: HOME SELF-CARE
[2019-02-25] MEDS ORDERED: LIDOCAINE 1% INJ 10MG/ML (20 ML MDV) SQ ONE (11:51)
[2019-02-25] MEDS: SENNOSIDES-DOCUSATE SODIUM 1 EACH TAB PO SCH (12:09)
--- NOTE | 2019-02-25 12:55 | IR ---
EXAMINATION TYPE: IR cvc insert >=5 years DATE OF EXAM: 02/25/2019 COMPARISON: NONE CLINICAL HISTORY: Infection Needs long-term intravenous access for antibiotics. PROCEDURE: After informed consent, the skin overlying the left basilic vein was localized with ultrasound and no miguel angel to be compressible and patent. An ultrasound image was obtained and submitted on the patient's c vallecillo. The overlying skin was prepped and draped and Lidocaine was used for local anesthesia. A skin chaparrita was made with a scalpel. Access was gained to the vein under ultrasound guidance with a 21 gau ge needle and a 0.018 inch wire was advanced. Access site was dilated with Peel-Away sheath and cath eter tailored to the appropriate length and advanced such that the distal tip is at the cavoatrial ju nction. Spot image was obtained verifying placement. Catheter was fixed to the skin and a sterile d ressing was placed following hemostasis. Catheter was aspirated and flushed with saline. Patient wa s discharged in stable condition without complication.Maximal barrier technique is utilized. Ultraso und image is documented on the chart. Ultrasound used with sterile technique. Fluoro time and fluoroscopic images submitted to document procedure: 13 intraoperative images documen t the procedure, 0.2 minutes fluoroscopy time IMPRESSION: STATUS POST ULTRASOUND AND FLUOROSCOPIC GUIDED PICC LINE PLACEMENT, READY FOR USE. THIS PROCEDURE WAS PERFORMED BY THE UNDERSIGNED.
--- NOTE | 2019-02-25 14:03 | PN ---
PROGRESS NOTE DATE OF SERVICE: 02/25/2019 REASON FOR FOLLOW UP: MSSA, site infection. INTERVAL HISTORY: The patient is currently afebrile. Patient has been breathing comfortably. The patient denies having any chest pain, no cough. no worsening abdominal pain. No nausea, no vomiting and no diarrhea. PHYSICAL EXAMINATION: Blood pressure 126/83 with a pulse of 46, temperature 98.3, she is 96% on room air. General description is a middle-aged female, up in the bed in no distress. RESPIRATORY SYSTEM: Unlabored breathing, clear to auscultation anteriorly. HEART: S1, S2. Regular rate and rhythm. ABDOMEN: Soft, no tenderness. LABS: Vanco trough of 24.3. Wound culture finalized with MSSA. Follow up blood cultures have been negative. DIAGNOSTIC IMPRESSION AND PLAN: Patient admitted to the hospital with sepsis, site infection with concern for an abscess that could not be drained. CT-guided followup that did show some improvement, culture with MSSA. Vanco will be discontinued. Cefazolin 2 g q.8 hours for 2 weeks. Prescription provided to the patient. She already got the PICC line. Once antibiotic arranged, she will go home from ID standpoint with close outpatient followup and keep monitoring of CBC, BMP and CRP. Questions and concerns were answered. MMODL / IJN: [id number] /
[2019-02-25 16:01] VITALS: BP 133/79; PULSE 44; TEMP 98
[2019-02-25] MEDS ORDERED: VANCOMYCIN 1,500 MG in SODIUM CHLORIDE 0.9% 250 ML IVPB SCH (22:00)
== END 2019-02-25 15:40 | disposition home or self-care (01) | DRG 769 ==
LOC: EC 05:53 → 6PED 08:57 → 4FBP 20:28
PROVIDERS: ADMIT Obstetrics & Gynecology; ATTEND Obstetrics & Gynecology
PROC: 0J9C0ZZ Drainage of Pelvic Region Subcutaneous Tissue and Fascia, Open Approach (ICD-10-PCS; principal; 2019-02-23)
PROC: 02HV33Z Insertion of Infusion Device into Superior Vena Cava, Percutaneous Approach (ICD-10-PCS; 2019-02-25)
DX: O86.04 Sepsis following an obstetrical procedure (principal); O86.03 Infection of obstetric surgical wound, organ and space site; O99.345 Other mental disorders complicating the puerperium; F53.0 Postpartum depression
CPT/HCPCS: 10030; 36415; 74177; 76942; 80048; 80053; 80202; 81001; 82150; 83605; 83690; 84145; 85025; 85610; 85730; 86140; 87040; 87070; 87075; 87077; 87086; 87186; 87205

== ENCOUNTER → 2019-03-16 | Outpatient (CLI) | payer BC ==
--- NOTE | 2019-03-16 13:03 | CT ---
EXAMINATION TYPE: CT abdomen pelvis w con DATE OF EXAM: 03/16/2019 HISTORY: Follow up infection, pelvic abscess. CT DLP: 461.9mGycm Automated Exposure Control for Dose Reduction was Utilized. CONTRAST: CT scan of the abdomen and pelvis is performed with oral and with IV Contrast, patient injected with 100 mL of Isovue 300. COMPARISON: CT abdomen and pelvis February 24, 2019 and older CTs FINDINGS: LUNG BASES: No significant abnormality is appreciated. LIVER/GB: No significant abnormality is appreciated. PANCREAS: No significant abnormality is seen. SPLEEN: Small splenule posterior inferior aspect of spleen axial image 20 is redemonstrated. ADRENALS: No significant abnormality is seen. KIDNEYS: No significant abnormality is seen. BOWEL: Patient has very little intra-abdominal fat making evaluation of bowel suboptimal. Oral contra st reaches level of the mid transverse colon. No suspicious small or large bowel dilatation. Some mil d to moderate prominence of fecal material in the rectum and left colon into proximal sigmoid colon. Correlate for possible fecal stasis. UTERUS/ADNEXA: Redemonstration of anteverted uterus. Tubular shaped air collection the vagina is felt to reflect tampon sagittal image 61. Round hypodense 1.8 cm lesion right aspect of uterus likely ref lects ovarian etiology. LYMPH NODES: No greater than 1cm abdominal or pelvic lymph nodes are appreciated. OSSEOUS STRUCTURES: No significant abnormality is seen. OTHER: Marked interval improvement in the anterior abdominal wall fluid collection with some mild res idual fat stranding present scarring over the mid pelvis at site of transversely near axial image 68. No definitive residual fluid collection within or outside abdominal or pelvic peritoneal c avity. IMPRESSION: Interval resolution of pleural effusions and ascites. Interval resolution of fluid collec tion through the midline face extending to the right adnexa anteriorly. No new focal fluid collection or abscess is identified.
== END | disposition home or self-care (01) ==
LOC: RADPROMAIN 09:38
PROVIDERS: ATTEND Internal Medicine Infectious Disease
DX: N73.9 Female pelvic inflammatory disease, unspecified (principal)
CPT/HCPCS: 74177; Q9967

== ENCOUNTER 2020-10-24 10:03 | Inpatient (IN) | payer BC ==
[2020-10-19 15:47] VITALS: BMI 28.7
[2020-10-24] MEDS ORDERED: CITRIC ACID-SODIUM CITRATE 15 ML CUP PO ONE (10:29)
[2020-10-24 10:38] LABS: Basophils % (A) 0 %; Eosinophils # (A) 0.1 k/uL (0-0.7); Eosinophils % (A) 1 %; HGB 13.9 gm/dL (11.4-16.0); Lymphocytes # (A) 1.5 k/uL (1.0-4.8); Lymphocytes % (A) 16 %; MCH 31.4 pg (25.0-35.0); MCHC 33.8 g/dL (31.0-37.0); MCV 92.9 fL (80.0-100.0); Mean Platelet Volume 7.7; Monocytes # (A) 0.5 k/uL (0-1.0); Monocytes % (A) 5 %; Neutrophils # (A) 6.8 k/uL (1.3-7.7); Neutrophils % (A) 75 %; Platelet Count 271 k/uL (150-450); RBC 4.41 m/uL (3.80-5.40); RDW 13.7 % (11.5-15.5); WBC 9.1 k/uL (3.8-10.6)
--- NOTE | 2020-10-24 12:08 | P.HPOB ---
History of Present Illness H&P Date: 10/24/20 Chief Complaint: Therefore repeat low transverse section, declining option for This is a 30-year-old white female 2 para 1001 EDC 10/31/2020 at 39 and one sevenths weeks' gestation presents today for repeat low transverse section, declining option for , declining option for tubal ligation. Fetus is been active throughout the . She denies fluid leakage or vaginal bleeding. Past medical history significant for ocular migraines and dysmenorrhea. Past surgical history section January 2019 with a postoperative wound infection. Current medications vitamins daily. ALLERGIES none known. Family history significant for type 2 diabetes, colon cancer, thyroid disorder. Social history patient is to her been, she is never been a tobacco smoker. She works at [employer]. She denies alcohol or drug use. history blood type is A+, rubella status immune. VDRL testing, Pap smear, urine culture, gonorrhea and chlamydia cultures, hepatitis B surface antigen, HIV testing all negative. Group B strep cultures negative. Blood type A positive. On exam patient is 5 foot 5 inches, 178 pounds, blood pressure 118/73, vital signs are stable and she is afebrile. General physical exam is within normal limits. Abdomen is soft and nontender. Fundus is gravid, 39 weeks' size, vertex presentation. heart rate is consistent with reactive NST. Cervix is long thick and closed. Impression: 39 and one sevenths weeks intrauterine , here for repeat low transverse section. All signs reassuring. Plan: For repeat low transverse section. Antibiotic prophylaxis given. All questions and concerns addressed. Review of Systems Constitutional: Reports as per HPI Past Medical History Past Medical History: No Reported History Additional Past Medical History / Comment(s): hx with post-op wound abscess/rectus sheath hematoma- Picc Line and antibiotics (01/2019)., occasional heartburn with . History of Any Multi-Drug Resistant Organisms: None Reported Past Surgical History: Section Additional Past Surgical History / Comment(s): picc line Past Anesthesia/Blood Transfusion Reactions: No Reported Reaction Additional Past Anesthesia/Blood Transfusion Reaction / Comment(s): . Past Psychological History: No Psychological Hx Reported Additional Psychological History / Comment(s): . Smoking Status: Never smoker Past Alcohol Use History: None Reported Past Drug Use History: None Reported - Past Family History Father Family Medical History: No Reported History, Cancer Additional Family Medical History / Comment(s): colon cancer Mother Family Medical History: Diabetes Mellitus Medications and Allergies Home Medications Medication Instructions Recorded Confirmed Type Calcium Carbonate [Tums] 500 mg PO DIRECTED PRN 10/19/20 10/19/20 History Pnv No.95/Ferrous Fum/Folic AC 1 each PO DAILY 10/19/20 10/19/20 History [ Multivitamin Tablet] Allergies Allergy/AdvReac Type Severity Reaction Status Date / Time No Known Allergies Allergy Verified 10/19/20 15:27 Exam Vital Signs Temp Pulse Resp BP Pulse Ox 10/24/20 10:28 97.5 F L 73 16 117/73 98 Intake and Output 10/23/20 10/24/20 10/24/20 22:59 06:59 14:59 Other: Weight 80.739 kg See dictation under HPI please Results Result Diagrams: 10/24/20 10:20 Assessment and Plan Assessment: 39 and one sevenths weeks intrauterine , here for repeat low transverse section, declining option for , declining option for tubal ligation. Plan: Antibiotics given. All questions answered. Time with Patient: Less than 30
[2020-10-24] MEDS ORDERED: ONDANSETRON 4 MG/2 ML VIAL IVP PRN ×2 (12:38→13:00)
[2020-10-24] MEDS ORDERED: NALBUPHINE 10 MG/ML (1 ML AMP) IV PRN (12:38)
[2020-10-24] MEDS ORDERED: NALOXONE 0.4 MG/ML 1 ML VIAL IV PRN ×2 (12:38→13:00)
[2020-10-24] MEDS ORDERED: MORPHINE SULFATE 2 MG/ML SYRINGE IVP PRN (12:38)
[2020-10-24] MEDS ORDERED: NALBUPHINE 10 MG/ML (1 ML AMP) ONE (12:58)
[2020-10-24] MEDS ORDERED: KETOROLAC 15 MG/ML 1 ML VIAL ONE (12:58)
[2020-10-24] MEDS ORDERED: MORPHINE SULFATE (PF) 0.3 MG/0.3 ML SYR ONE (12:58)
[2020-10-24] MEDS ORDERED: ONDANSETRON 4 MG/2 ML VIAL ONE (12:58)
[2020-10-24] MEDS ORDERED: OXYTOCIN 30 UNITS/500 ML NS BAG IV ONE (12:58)
[2020-10-24] MEDS ORDERED: ePHEDrine SULFATE/0.9% NACL/PF 50 MG/5 ML SYRINGE IV ONE (12:58)
[2020-10-24] MEDS ORDERED: diphenhydrAMINE 50 MG CAP PO PRN (13:00)
[2020-10-24] MEDS ORDERED: METOCLOPRAMIDE 5 MG/ML 2 ML VIAL IVP PRN (13:00)
[2020-10-24] MEDS ORDERED: ZOLPIDEM 5 MG TAB PO PRN (13:00)
[2020-10-24] MEDS ORDERED: SIMETHICONE 80 MG CHEWABLE PO PRN (13:00)
[2020-10-24] MEDS ORDERED: diphenhydrAMINE 25 MG CAP PO PRN (13:00)
[2020-10-24] MEDS ORDERED: diphenhydrAMINE 50 MG/ML 1 ML VIAL IVP PRN ×2 (13:00)
--- NOTE | 2020-10-24 13:00 | P.OP ---
Date of Procedure: 10/24/20 Preoperative Diagnosis: 39 and one sevenths weeks, previous declining . Postoperative Diagnosis: Same, liveborn female , nuchal cord 1 Procedure(s) Performed: Repeat low transverse section Anesthesia: spinal Surgeon: Ana Kerr [employer] Back Counter Man #1: Manny Black Estimated Blood Loss (ml): 650 IV fluids (ml): 1,000 Urine output (ml): 300 Pathology: none sent Condition: stable Disposition: PACU Operative Findings: Liveborn female infant, occiput anterior, nuchal cord 1. Normal-appearing tubes and ovaries bilaterally. Normal-appearing uterus. Description of Procedure: Patient is brought to the operating suite where a spinal with Duramorph is given. Antibiotics given. She's placed in the dorsal supine position with left lateral uterine displacement. The abdomen is prepped and draped in usual sterile fashion. Beauchamp catheter placed to direct drainage. The appropriate timeout is performed to assure proper patient and procedural identification. Analgesia is checked and noted to be normal. A repeat low transverse skin incision is made in this is carried down through the subcutaneous tissue to the fascia. Fascia is isolated, scored, extended bilaterally with curved Canales scissors. Peritoneum is next identified and incised. There is no bowel or bladder involvement. Bladder flap is created and at all times the bladder is Well from the operative field to avoid bladder and/or ureteral injury. A low transverse uterine incision is made in this is extended bilaterally with blunt dissection. 's head is delivered occiput anterior. There is a nuchal cord 1 that was reduced. The patient is officially delivered of a liveborn female infant at 1225 hours. Umbilical cord is doubly clamped and ligated, she is handed to waiting nurses for evaluation where scores of 9 and 9 at one and 5 minutes respectively are given. The placenta is delivered manually, it is inspected and noted to be intact with trivascular cord. The uterus is swept clean with a sterile sponge to avoid any retained products of conception. The uterus is externalized and massaged. Oxytocin is given. The edges of the incision are grasped with Colbert clamps and the uterus is closed in a two-step fashion. First layer with 0 Vicryl is running locking. Second layer with 0 Vicryl is imbricated. Hemostasis is excellent. Bilateral tubes and ovaries are inspected and noted to be normal. No uterine defects are noted. Abdomen is suctioned with suction on guard posterior to the uterus. Uterus is gently placed back into the abdominal cavi ty. Bilateral gutters are inspected and cleaned. Again, hemostasis is excellent. The peritoneum was allowed to close by secondary intention. The fascia is closed in a running stitch of 0 Vicryl, with over ligation in the midline. Subcutaneous tissue is irrigated, clean and dry. Any small bleeders are cauterized. Subcutaneous tissue is reapproximated with 2-0 Vicryl in a running stitch. 4-0 undyed Monocryl is used for final skin closure subcuticularly. Steri-Strips and Mastisol are applied to the wound. Fundus is firm and in the midline. Beauchamp is noted to be draining clear urine. Patient is brought back to the recovery room in excellent condition with stable vital signs including a pulse of 90, blood pressure 130/60. Blood loss IM pulled is 610 mL's. Patient and her family are allowed to begin the bonding experience in the LDR.
[2020-10-24] MEDS: ACETAMINOPHEN TAB 500 MG TAB PO SCH ×2 (16:31→22:08)
[2020-10-24] MEDS: IBUPROFEN 600 MG TAB PO SCH (18:21)
[2020-10-24] MEDS: LACTATED RINGERS 1,000 ML IV SCH (18:22)
[2020-10-25] MEDS: IBUPROFEN 600 MG TAB PO SCH ×4 (00:52→21:09)
[2020-10-25] MEDS: LACTATED RINGERS 1,000 ML IV SCH ×2 (01:15→06:38)
[2020-10-25] MEDS: SENNOSIDES-DOCUSATE SODIUM 1 EACH TAB PO SCH ×3 (02:56→19:34)
[2020-10-25] MEDS: ACETAMINOPHEN TAB 500 MG TAB PO SCH ×4 (04:04→19:34)
[2020-10-25 06:54] LABS: Basophils % (A) 0 %; Eosinophils # (A) 0.1 k/uL (0-0.7); Eosinophils % (A) 1 %; HCT 35.4 % (34.0-46.0); Lymphocytes # (A) 1.2 k/uL (1.0-4.8); Lymphocytes % (A) 11 %; MCH 31.8 pg (25.0-35.0); MCHC 33.9 g/dL (31.0-37.0); MCV 93.9 fL (80.0-100.0); Monocytes # (A) 0.5 k/uL (0-1.0); Monocytes % (A) 5 %; Neutrophils # (A) 9.4 k/uL (1.3-7.7); Neutrophils % (A) 82 %; Platelet Count 232 k/uL (150-450); RBC 3.77 m/uL (3.80-5.40); RDW 13.4 % (11.5-15.5); WBC 11.4 k/uL (3.8-10.6)
--- NOTE | 2020-10-25 08:12 | P.PN ---
Subjective Progress Note Date: 10/25/20 Principal diagnosis: Doing well postoperative day #1 Positive flatus. Minimal pain. Minimal lochia rubra. No complaints. Objective - Vital Signs Vital signs: Vital Signs Temp 98.8 F 10/25/20 04:00 Pulse 74 10/25/20 04:00 Resp 16 10/25/20 05:00 BP 97/62 10/25/20 04:00 Pulse Ox 98 10/25/20 06:00 Intake & Output 10/24/20 10/25/20 10/25/20 18:59 06:59 18:59 Output Total 900 1525 Balance -900 -1525 Weight 80.739 kg Output: Urine 900 1525 Other: # Voids 1 - Constitutional General appearance: Present: average body habitus - EENT Eyes: Present: PERRLA ENT: Present: hearing grossly normal - Neck Neck: Present: normal ROM - Respiratory Respiratory: bilateral: CTA - Cardiovascular Rhythm: regular - Gastrointestinal Gastrointestinal Comment(s): Incision clean, dry, well approximated, Steri-Strips applied. Fundus firm, midline, symmetric, 18 week size, nontender. General gastrointestinal: Present: normal bowel sounds - Integumentary Integumentary: Present: normal - Neurologic Neurologic: Present: CNII-XII intact - Musculoskeletal Musculoskeletal: Present: gait normal, strength equal bilaterally - Psychiatric Psychiatric: Present: A&O x's 3, appropriate affect, intact judgment & insight - Labs CBC & Chem 7: 10/25/20 06:41 Labs: Abnormal Lab Results - Last 24 Hours (Table) 10/25/20 Range/Units 06:41 WBC 11.4 H (3.8-10.6) k/uL RBC 3.77 L (3.80-5.40) m/uL Neutrophils # 9.4 H (1.3-7.7) k/uL Assessment and Plan Assessment: Doing well postoperative day #1 Plan: Continue postoperative care. Likely discharge home tomorrow. Advanced diet and activity. Time with Patient: Less than 30
--- NOTE | 2020-10-25 11:37 | P.PN ---
Progress Note - Text Date: 10/25/2020 Time: 07:12 The patient is status post section Vital signs stable VAS: O-10 Patient has no complaints of pain. The patient incurred some minimal itching yesterday, this itching is now subsiding. Pain meds to be managed by service.
[2020-10-26] MEDS: IBUPROFEN 600 MG TAB PO SCH ×2 (00:35→06:30)
[2020-10-26] MEDS: ACETAMINOPHEN TAB 500 MG TAB PO SCH ×2 (04:00→10:14)
[2020-10-26] MEDS: SENNOSIDES-DOCUSATE SODIUM 1 EACH TAB PO SCH (07:47)
[2020-10-26 07:52] VITALS: BP 112/72; PULSE 79; RESP 16; TEMP 98.5
--- NOTE | 2020-10-26 10:05 | P.DS ---
Providers Date of admission: 10/24/20 10:03 Expected date of discharge: 10/26/20 Attending physician: Ana Kerr Primary care physician: Stated None - Discharge Diagnosis(es) (1) S/P section Current Visit: Yes Status: Acute Hospital Course: The patient is a 30-year-old 2 para 1001 admitted at 39 and one sevenths weeks for repeat low transverse section having had a previous section. She has had an incompetent and group B strep status is negative. On labor and delivery, she was taken the operating room where she was delivered of a viable female infant with Apgars of 9 at 1 minute and 9 at 5 it's. Her postoperative course was unremarkable with vital signs being stable and her temperature was afebrile throughout. She was deemed stable for discharge on postoperative day #2 and was discharged home to follow-up in the office in 2 weeks for an incision check and 6 weeks routinely. Discharge instructions included calling for any significantly increased bleeding or foul- smelling lochia, significantly increased fever abdominal pain, perineal complaints, breast complaints, incisional complaints, or anything else that concerned her. She was additionally instructed to have nothing in the vagina for at least 6 weeks time to include intercourse. She understood her instructions and agrees to follow up as noted above. Discharge medications included continue vitamins as she has opted to breast-feed. She otherwise was to use [id number] analgesic pain medications as needed and was provided with a prescription for Tylenol No. 3, 1-2 by mouth every 6 hours when necessary pain, #20 dispensed with no refills. Maternal blood type is A+ and rubella status is immune. Discharge hemoglobin and hematocrit were 12.0 and 35.4 respectively. Procedures: #1. Repeat low transverse section Patient Condition at Discharge: Stable Plan - Discharge Summary Discharge Rx Participant: No New Discharge Prescriptions: No Action Calcium Carbonate [Tums] 500 mg PO DIRECTED PRN PRN Reason: Heartburn Pnv No.95/Ferrous Fum/Folic AC [ Multivitamin Tablet] 1 each PO DAILY Discharge Medication List Calcium Carbonate [Tums] 500 mg PO DIRECTED PRN 10/19/20 [History] Pnv No.95/Ferrous Fum/Folic AC [ Multivitamin Tablet] 1 each PO DAILY 10/19/20 [History] Follow up Appointment(s)/Referral(s): Ana Kerr MD [STAFF PHYSICIAN] - 2 Weeks Discharge Disposition: HOME SELF-CARE
== END 2020-10-26 11:27 | disposition home or self-care (01) | DRG 788 ==
LOC: 4FBP 10:03
PROVIDERS: ADMIT Obstetrics & Gynecology; ATTEND Obstetrics & Gynecology
PROC: 10D00Z1 Extraction of Products of Conception, Low, Open Approach (ICD-10-PCS; principal; 2020-10-24 12:07)
DX: O34.211 Maternal care for low transverse scar from previous cesarean delivery (principal); N85.8 Other specified noninflammatory disorders of uterus; R12 Heartburn; Z37.0 Single live birth; Z3A.39 39 weeks gestation of pregnancy; O69.81X0 Labor and delivery complicated by cord around neck, without compression, not applicable or unspecified; Z79.899 Other long term (current) drug therapy; Z86.69 Personal history of other diseases of the nervous system and sense organs; Z87.42 Personal history of other diseases of the female genital tract; Z80.0 Family history of malignant neoplasm of digestive organs; Z83.3 Family history of diabetes mellitus; Z83.49 Family history of other endocrine, nutritional and metabolic diseases
CPT/HCPCS: 85025; 86850; 86900; 86901